=== PATIENT | female | born 1940 | race Caucasian/White ===

== ENCOUNTER 2017-02-16 11:47 | Day surgery (SDC) | payer MEDICARE ==
[2017-02-13 13:37] VITALS: BMI 25.2
[~2017-02-16 11:47] MED LIST: SODIUM CHLORIDE 0.9% 1,000 ML IV SCH
[2017-02-16 12:06] VITALS: BP 179/76; PULSE 46; RESP 18; TEMP 97.7
[2017-02-16] MEDS ORDERED: diphenhydrAMINE 50 MG/ML 1 ML VIAL ONE (12:24)
[2017-02-16] MEDS ORDERED: diphenhydrAMINE 50 MG/ML 1 ML VIAL IVP ONE (12:28)
[2017-02-16] MEDS ORDERED: IODIXANOL 320 MG/ML 100 ML IV ONE (12:46)
--- NOTE | 2017-02-16 13:02 | P.PCN ---
Preoperative Diagnosis: Right upper extremity venogram Indication Patient awaiting permanent pacemaker implantation, left side dialysis AV fistula , prior hemodialysis catheters on the right side subclavian/SCC Procedure 15 mL of IV dye used Right subclavian and axillary veins are patent No stenosis Plan Dual-chamber pacemaker implantation right-sided Hibiclens bath for 7 days prior to the procedure, patient given a prescription daptomycin prior to the procedure and this will be given before the patient enters the EP lab. Over 30 minutes. The dose 1, discussed with pharmacy Oskar following that Postoperative Diagnosis: Procedure(s) Performed: Implants: Indications for Procedure: Operative Findings: Description of Procedure:
== END 2017-02-16 13:12 | disposition home or self-care (01) ==
LOC: CATHEP 11:47
PROVIDERS: ATTEND Internal Medicine Clinical Cardiac Electrophysiology
DX: Z01.818 Encounter for other preprocedural examination (principal); I44.1 Atrioventricular block, second degree; R00.1 Bradycardia, unspecified; I13.11 Hypertensive heart and chronic kidney disease without heart failure, with stage 5 chronic kidney disease, or end stage renal disease; E11.22 Type 2 diabetes mellitus with diabetic chronic kidney disease; N18.5 Chronic kidney disease, stage 5; Z99.2 Dependence on renal dialysis; Z79.4 Long term (current) use of insulin; Z87.891 Personal history of nicotine dependence; E78.5 Hyperlipidemia, unspecified; E03.9 Hypothyroidism, unspecified; Z79.82 Long term (current) use of aspirin; Z79.52 Long term (current) use of systemic steroids; Z79.899 Other long term (current) drug therapy; Z88.1 Allergy status to other antibiotic agents; Z88.5 Allergy status to narcotic agent; Z88.8 Allergy status to other drugs, medicaments and biological substances
CPT/HCPCS: 36005; 75820; J1200; Q9967

== ENCOUNTER 2017-02-17 15:20 | Inpatient (IN) | payer MEDICARE ==
[2017-02-17] MEDS ORDERED: HEPARIN SODIUM,PORCINE 5,000 UNIT/ML 1 ML VIAL IV PRN (18:44)
[2017-02-17] MEDS ORDERED: FEBUXOSTAT 40 MG PO PRN (19:30)
[2017-02-17 20:58] LABS: Glucose,Whole Blood 151 mg/dL (75-99)
[2017-02-17] MEDS: HEPARIN SODIUM,PORCINE/D5W PMX 25,000 UNIT in DEXTROSE/WATER 1 500ML.BAG IV SCH (21:07)
[2017-02-17] MEDS: INSULIN LISPRO (humaLOG) 300 UNIT/3 ML VIAL SQ SCH (21:13)
[2017-02-17] MEDS: ATORVASTATIN 10 MG TAB PO SCH (23:05)
[2017-02-17] MEDS: CALCIUM CARB-MAG CARB-FOLIC 1 EACH TAB PO SCH (23:05)
[2017-02-17] MEDS: CHOLECALCIFEROL 1,000 UNIT TAB PO SCH (23:05)
[2017-02-17] MEDS: ASPIRIN 81 MG CHEW PO SCH (23:05)
[2017-02-17] MEDS: hydrALAZINE HCL 50 MG TAB PO SCH (23:06)
[2017-02-18 05:52] LABS: Glucose,Whole Blood 83 mg/dL (75-99)
[2017-02-18 06:12] LABS: Basophils # (A) 0.1 k/uL (0-0.2); Basophils % (A) 0 %; CH 31.8; Eosinophils # (A) 0.4 k/uL (0-0.7); Eosinophils % (A) 2 %; HCT 37.3 % (34.0-46.0); HDW 2.49; HGB 12.1 gm/dL (11.4-16.0); Immature Gran Flag Slight; Luc # (Auto) 0.18; Luc % (Auto) 1; Lymphocytes # (A) 1.4 k/uL (1.0-4.8); Lymphocytes % (A) 5 %; MCH 31.6 pg (25.0-35.0); MCHC 32.6 g/dL (31.0-37.0); MCV 97.1 fL (80.0-100.0); Mean Platelet Volume 8.6; Monocytes # (A) 0.5 k/uL (0-1.0); Monocytes % (A) 2 %; Neutrophils # (A) 25.1 k/uL (1.3-7.7); Neutrophils % (A) 91 %; RBC 3.84 m/uL (3.80-5.40); RDW 15.4 % (11.5-15.5); WBC (Perox) 27.98
[2017-02-18 06:17] LABS: Calcium 8.9 mg/dL (8.4-10.2)
[2017-02-18 06:22] LABS: INR 1.1 (<1.1); Partial Thromboplastin Time 26.3 sec (22.0-30.0); Prothrombin Time 10.7 sec (9.0-12.0)
[2017-02-18 06:38] LABS: WBC 27.6 k/uL (3.8-10.6)
[2017-02-18] MEDS: LEVOTHYROXINE 75 MCG TAB PO SCH (07:02)
[2017-02-18] MEDS: INSULIN LISPRO (humaLOG) 300 UNIT/3 ML VIAL SQ SCH ×4 (07:03→21:55)
[2017-02-18] MEDS: INSULN ASP PRT/INSULIN ASPART 100 UNIT/ML 10 ML VIAL SQ SCH ×2 (08:37→17:08)
[2017-02-18] MEDS ORDERED: ACETAMINOPHEN TAB 325 MG TAB PO PRN (08:49)
--- NOTE | 2017-02-18 08:52 | HP ---
DATE OF ADMISSION: Emily Hooker was transferred from [facility] for management of atrial fibrillation and bradycardia. Emily underwent venography of the right upper extremity because of future planning for a possible pacemaker. She is a dialysis patient and has an AV fistula on the left arm. She has had hemodialysis catheters placed in the left IJ and subclavian and therefore in order to ensure that there was no stenosis in this left axillary/left subclavian SVC area, venogram was performed 15 mL of dye was used. She is already on prednisone and a higher dose of prednisone was given preoperatively. Benadryl was given preoperatively, because she apparently has dye allergy. After the procedure, she was monitored for several hours. She did have some redness in the skin, but there was no anaphylaxis, no angioedema and she was discharged home. She came back the next and came to [facility] and she certainly did not have any angioedema or anaphylactic shock. She is very stable. She just had a rash. She also was found to be in atrial fibrillation with some bradycardia. This lady has had a history of bradycardiac for quite some time, but she has always been asymptomatic. More recently she has been experiencing dizzy spells. A Reveal monitor had been implanted in 2013 to monitor her for severe bradycardia. The intent was to avoid permanent pacemaker implantation for asymptomatic bradycardia because she is a renal transplant patient. She is on immunosuppressive therapy and therefore her risk of infection is significant after device implantation. Yesterday when I examined her, she was lying comfortably in bed. She had no chest discomfort. She just had itching in the skin and on examination the skin was somewhat reddish all over and was flaking and peeling. There is no evidence for angioedema and her blood pressure is normal. Past history of recurrent palpitations. AV node disease, documented Mobitz I block junctional escape rhythm, diabetes, renal failure, renal transplant on immunosuppressive therapy, past history of alcohol use. ALLERGIES: She has a ( ) of allergies which are listed in the chart. Medication list was reviewed and is documented in the chart. She is on steroids. On examination, her blood pressure was 131/53 mmHg, heart rate is in the 70s and 80s and A. fib. She is afebrile, 97.9 degrees Fahrenheit. Head and neck examination is normal. Heart sounds are irregular. No murmurs, no gallops. Abdomen is soft, nontender. Extremities are warm, no edema. Breath sounds are clear. Labs are reviewed. White count is 27,000. She was given IV steroids last week for several days in preparation for the upper extremity venogram. Sodium is 135, potassium 5.0 creatinine is 5.28, which is chronic. She is on dialysis. She is on IV heparin IMPRESSION: 1. 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 2. Recent diagnosis of atrial fibrillation on heparin now and not a candidate for ( ) she will be started on Coumadin 2.5 mg p.o. daily today and this can be checked in about 5 days. No Lovenox. 3. Junctional rhythm, advance AV node disease and recurrent dizzy spells, but no true loss of consciousness or falls or injuries. 4. Stage V chronic kidney disease on dialysis, status post renal transplant on immunosuppressive therapy. 5. History of diabetes. 6. History of hypertension. 7. History of DYE ALLERGY. 8. Chronic steroid use ( ) IV steroid and elevated white count, but completely afebrile. SUGGEST: In view of the peeling skin and the rash on the chest wall as well as the elevated white count, it will be whitten to hold off on permanent pacing. I have waited since 2013 without any adverse events. We should allow the skin to heal up completely and bring her back for a permanent pacemaker implantation, by then she has already been scheduled for this as an outpatient. By then skin would have healed up and her white count should have improved. I will start her on Coumadin today. If her skin has started to improve, I do not think she needs to wait here, she can go home on Coumadin and we have her checked again in about 5 days in the office. Dialysis may continue.
[2017-02-18] MEDS ORDERED: predniSONE 5 MG TAB PO SCH (09:00)
[2017-02-18] MEDS: diphenhydrAMINE 25 MG CAP PO SCH ×4 (09:31→21:54)
[2017-02-18 10:20] LABS: Glucose,Whole Blood 111 mg/dL (75-99)
[2017-02-18] MEDS ORDERED: ONDANSETRON 4 MG/2 ML VIAL IVP PRN (10:22)
[2017-02-18] MEDS: hydrALAZINE HCL 50 MG TAB PO SCH (10:49)
[2017-02-18] MEDS ORDERED: VANCOMYCIN 1,500 MG in SODIUM CHLORIDE 0.9% 250 ML IVPB STA (10:56)
--- NOTE | 2017-02-18 11:03 | XR ---
EXAMINATION TYPE: XR chest 1V portable DATE OF EXAM: 02/18/2017 10:47 AM COMPARISON: NONE HISTORY: Fever and cough, bradycardia TECHNIQUE: Single frontal view of the chest is obtained. FINDINGS: The patient is rotated and there are overlying cardiac leads. No pneumothorax or pleural e ffusion is evident. Heart is thought to be enlarged. Rhythm recorder noted over the heart. Patchy den sity present at the lung bases. Surgical clip in the right upper quadrant. There is apical pleural th ickening. Pulmonary vascularity and fanny within normal limits. IMPRESSION: Rotated exam. There may be basilar atelectasis, correlate to exclude pneumonia, PA and l ateral chest x-ray may be of benefit. Suspected cardiomegaly.
[2017-02-18] MEDS: SODIUM CHLORIDE 0.9% 1,000 ML IV SCH ×2 (11:06→12:00)
[2017-02-18 11:22] LABS: Glucose,Whole Blood 107 mg/dL (75-99)
--- NOTE | 2017-02-18 11:24 | P.NPCON ---
History of Present Illness - Reason for Consult end stage renal disease - History of Present Illness Reason for consultation: End-stage renal disease History of present illness: Patient is a 77-year-old female seen in renal consultation for end-stage renal disease. She is maintained on hemodialysis on a Thursday schedule via left upper extremity AV fistula. Patient presented to [facility] due to bradycardia. Her heart rate was noted to be in the 30s. She was subsequently transferred over to [facility] for pacemaker placement. However heart rate here has been stable. She is also noted to have a rash on her chest which is presumably due to reaction to the dye from the venogram that she had 2 days ago. Currently she is noted to be hypotensive with systolic blood pressure in the 70s. Her lactic acid level is also elevated at 3.2. She will be receiving IV fluid bolus. She underwent hemodialysis yesterday. She's also noted to have a fever and cultures have been sent. Patient appears quite lethargic and is currently resting in bed. Vital signs are stable. General: The patient appeared well nourished and normally developed. HEENT: Head exam is unremarkable. Neck is without jugular venous distension. LUNGS: Lungs are clear to auscultation and percussion. Breath sounds decreased. HEART: Rate and Rhythm are regular. First and second heart sounds normal. No murmurs, rubs or gallops. Erythema noted on her chest. ABDOMEN: Abdominal exam reveals normal bowel sounds. Non-tender and non- distended. No evidence of peritonitis. EXTREMITITES: No clubbing, cyanosis, or edema. Amputation noted. Past Medical History Past Medical History: Cancer, Diabetes Mellitus, Dialysis, Hyperlipidemia, Liver Disease, Osteoarthritis (OA), Renal Disease, Skin Disorder, Thyroid Disorder, Vascular Disorder Additional Past Medical History / Comment(s): hx migraines, SEE DR PEREIRA'S H& P, GOUT, skin cancer, kidney failure, hemodialysis- on TUTHSA. hx hepatitis. 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 blood transfusion-no reaction that pt was aware of. Type of Cardiac Device: Loop Past Psychological History: No Psychological Hx Reported Smoking Status: Former smoker Past Alcohol Use History: None Reported Additional Past Alcohol Use History / Comment(s): quit smoking 1986, smoked for 30 yrs, smoked 1 1/2 PPD Past Drug Use History: None Reported - Past Family History Mother Family Medical History: Cancer Additional Family Medical History / Comment(s): BREAST Father Family Medical History: CVA/TIA, Diabetes Mellitus Medications and Allergies Home Medications Medication Instructions Recorded Confirmed Type Aspirin 81 mg PO HS 04/20/14 02/17/17 History Cyclosporine, Modified [Gengraf] 25 mg PO HS 04/20/14 02/17/17 History Cyclosporine, Modified [Gengraf] 50 mg PO QAM 04/20/14 02/17/17 History Febuxostat [Uloric] 40 mg PO DAILY PRN 04/20/14 02/17/17 History Insuln Asp Prt/Insulin Aspart See Protocol SQ HS 04/20/14 02/17/17 History [NovoLOG MIX 70-30 VIAL] Levothyroxine Sodium [Synthroid] 150 mcg PO DAILY 04/20/14 02/17/17 History Simvastatin [Zocor] 10 mg PO HS 04/20/14 02/17/17 History hydrALAZINE HCL 50 mg PO BID 04/20/14 02/17/17 History predniSONE 5 mg PO DAILY 04/20/14 02/17/17 History Cholecalciferol [Vitamin D3] 2,000 unit PO HS 02/13/17 02/17/17 History Magnebinder 300 mg PO HS 02/13/17 02/17/17 History Allergies Allergy/AdvReac Type Severity Reaction Status Date / Time Iodine and Iodide Containing Allergy Severe Rash/Hives Verified 02/17/17 19:03 Produc acetaminophen Allergy Rash/Hives Verified 02/17/17 19:03 allopurinol Allergy Rash/Hives Verified 02/17/17 19:03 cephalexin monohydrate Allergy Rash/Hives Verified 02/17/17 19:03 [From Keflex] clindamycin HCl Allergy Rash/Hives Verified 02/17/17 19:03 [From Cleocin] clindamycin palmitate HCl Allergy Rash/Hives Verified 02/17/17 19:03 [From Cleocin] clindamycin phosphate Allergy Rash/Hives Verified 02/17/17 19:03 [From Cleocin] clonidine HCl [From Catapres] Allergy Unknown Verified 02/17/17 19:03 codeine Allergy Unknown Verified 02/17/17 19:03 hydrocodone bitartrate Allergy Rash/Hives Verified 02/17/17 19:03 [From Lortab] metoclopramide HCl Allergy Rash/Hives Verified 02/17/17 19:03 [From Reglan] Penicillins Allergy Unknown Verified 02/17/17 19:03 propoxyphene napsylate Allergy Swelling Verified 02/17/17 19:03 [From Darvocet-N 100] Physical Exam Vitals: Vital Signs Temp Pulse Resp BP Pulse Ox 02/18/17 11:07 67 20 78/43 96 02/18/17 10:56 67 75/40 95 02/18/17 10:54 66 77/45 7 L 02/18/17 10:41 70 90/48 02/18/17 10:21 100.5 F H 90 123/66 94 L 02/18/17 08:35 101.6 F H 83 20 113/46 98 02/18/17 08:00 20 02/18/17 04:00 97.9 F 82 19 131/53 96 02/18/17 00:00 98.1 F 72 16 154/70 98 02/17/17 20:00 98.0 F 63 17 131/78 96 02/17/17 18:40 98.1 F 61 16 136/57 98 Intake and Output 02/17/17 02/18/17 02/18/17 22:59 06:59 14:59 Intake Total 30.2 360 270.094 Output Total 2900 Balance -2869.8 360 270.094 Intake: Intake, IV Titration 30.2 150.094 Amount Heparin Sodium,Porcine/ 30.2 150.094 D5w Pmx 25,000 unit In Dextrose/Water 1 500ml. bag @ 12 UNITS/KG/HR 18. 12 mls/hr IV .Q24H [facility] Rx #:[id number] Oral 360 120 Output: Other 2900 Other: # Voids 1 Weight 75.5 kg 76.5 kg Results - Lab Results Most recent lab results Calcium 8.9 mg/dL (8.4-10.2) 02/18/17 05:36 02/18/17 05:36 02/18/17 05:36 Assessment and Plan Plan: Assessment: #1. End-stage renal disease maintained on hemodialysis on a Thursday schedule via left upper extremity AV fistula. #2. Sepsis. Questionable pneumonia. She does have elevated white count and is also noted to be hypotensive. She is febrile as well. #3. History of liver transplant maintained on cyclosporine and prednisone. #4. Insulin-dependent diabetes mellitus. #5. 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 Currently not bradycardic. #6. Chronic kidney disease mineral bone disease. Plan: I will give her 2 L of IV fluid bolus. If remains persistently hypotensive, will need to be transferred to the intensive care unit for vasopressors. Follow-up cultures. I will give her 1 dose of Zosyn and 1 dose of vancomycin now. Infectious disease has been consulted. Hemodialysis tomorrow. Check phosphorus level. Maintain mgbind with meals. Repeat lactic acid level in the evening. Thank you for the consultation. I will continue to follow the patient with you during her hospital stay.
[2017-02-18 11:48] LABS: Hemoglobin A1C 6.6 % (4.2-6.1)
[2017-02-18] MEDS ORDERED: IV VANCOMYCIN PER PHARMACY 1 EACH MISC MISCELLANE ONE (14:00)
--- NOTE | 2017-02-18 14:31 | P.CNPUL ---
History of Present Illness Consult date: 02/18/17 Requesting physician: Cecil Blood Reason for consult: other (Hypotension and possible sepsis) Chief complaint: Low heart rate and hypotension History of present illness: This is a 77-year-old female with history of end-stage renal disease, patient is on hemodialysis on Tuesdays and Saturdays, this is done via left upper extremity AV fistula. Patient presented to [facility] with bradycardia and heart rate in the low 30s. Patient was seen by cardiology , and arrangements were made for her to be transferred to [facility] for pacemaker placement. However her rate seems to have stabilized since she was brought in to [facility], patient was noted to be hypotensive with systolic pressure in the 70s upon presentation. So far the patient received 2 L of fluid boluses, and she was also noted to have fever, with leukocytosis, patient received empiric antibiotics by nephrology, vancomycin and Zosyn were given. Patient was also given steroids since she is a liver transplant patient and mentate normally on cyclosporine and prednisone. At any rate, at the time of my evaluation, her blood pressure was noted to be in the mid 90s systolic, with a mean arterial pressure of 66. So far the patient has not received any norepinephrine, however I made clear instructions for the patient to be placed on norepinephrine if her blood pressure continues to show mean arterial pressure is below 65. And the patient would have to be transferred to the intensive care unit. During my evaluation, patient denied any headaches no blurred vision no dizziness. No shortness of breath no cough no wheezing no chest pain. No nausea no vomiting no abdominal pain no melena no hematemesis no dysuria and no frequency no urgency. Patient actually seemed quite stable clinically, but the blood pressure was again noted to be marginal mean of 66. Review of Systems 14 point review of systems were obtained, please refer to pertinent positives and negatives as per HPI. Past Medical History Past Medical History: Cancer, Diabetes Mellitus, Dialysis, Hyperlipidemia, Liver Disease, Osteoarthritis (OA), Renal Disease, Skin Disorder, Thyroid Disorder, Vascular Disorder Additional Past Medical History / Comment(s): hx migraines, SEE DR BLOOD'S H& P, GOUT, skin cancer, kidney failure, hemodialysis- on TUTHSA. hx hepatitis. 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 blood transfusion-no reaction that pt was aware of. Type of Cardiac Device: Loop Past Psychological History: No Psychological Hx Reported Smoking Status: Former smoker Past Alcohol Use History: None Reported Additional Past Alcohol Use History / Comment(s): quit smoking 1986, smoked for 30 yrs, smoked 1 1/2 PPD Past Drug Use History: None Reported - Past Family History Mother Family Medical History: Cancer Additional Family Medical History / Comment(s): BREAST Father Family Medical History: CVA/TIA, Diabetes Mellitus Medications and Allergies Home Medications Medication Instructions Recorded Confirmed Type Aspirin 81 mg PO HS 04/20/14 02/17/17 History Cyclosporine, Modified [Gengraf] 25 mg PO HS 04/20/14 02/17/17 History Cyclosporine, Modified [Gengraf] 50 mg PO QAM 04/20/14 02/17/17 History Febuxostat [Uloric] 40 mg PO DAILY PRN 04/20/14 02/17/17 History Insuln Asp Prt/Insulin Aspart See Protocol SQ HS 04/20/14 02/17/17 History [NovoLOG MIX 70-30 VIAL] Levothyroxine Sodium [Synthroid] 150 mcg PO DAILY 04/20/14 02/17/17 History Simvastatin [Zocor] 10 mg PO HS 04/20/14 02/17/17 History hydrALAZINE HCL 50 mg PO BID 04/20/14 02/17/17 History predniSONE 5 mg PO DAILY 04/20/14 02/17/17 History Cholecalciferol [Vitamin D3] 2,000 unit PO HS 02/13/17 02/17/17 History Magnebinder 300 mg PO HS 02/13/17 02/17/17 History Allergies Allergy/AdvReac Type Severity Reaction Status Date / Time Iodine and Iodide Containing Allergy Severe Rash/Hives Verified 02/17/17 19:03 Produc acetaminophen Allergy Rash/Hives Verified 02/17/17 19:03 allopurinol Allergy Rash/Hives Verified 02/17/17 19:03 cephalexin monohydrate Allergy Rash/Hives Verified 02/17/17 19:03 [From Keflex] clindamycin HCl Allergy Rash/Hives Verified 02/17/17 19:03 [From Cleocin] clindamycin palmitate HCl Allergy Rash/Hives Verified 02/17/17 19:03 [From Cleocin] clindamycin phosphate Allergy Rash/Hives Verified 02/17/17 19:03 [From Cleocin] clonidine HCl [From Catapres] Allergy Unknown Verified 02/17/17 19:03 codeine Allergy Unknown Verified 02/17/17 19:03 hydrocodone bitartrate Allergy Rash/Hives Verified 02/17/17 19:03 [From Lortab] metoclopramide HCl Allergy Rash/Hives Verified 02/17/17 19:03 [From Reglan] Penicillins Allergy Unknown Verified 02/17/17 19:03 propoxyphene napsylate Allergy Swelling Verified 02/17/17 19:03 [From Darvocet-N 100] Physical Exam Vitals: Vital Signs Temp Pulse Resp BP Pulse Ox 02/18/17 14:13 73 93/79 02/18/17 13:34 83 18 91/44 95 02/18/17 13:25 98 F 02/18/17 13:23 76 89/52 98 02/18/17 12:45 81 20 115/61 100 02/18/17 12:39 98.7 F 02/18/17 12:26 72 20 90/52 100 02/18/17 12:03 75 20 91/52 100 02/18/17 11:50 79 20 74/45 100 02/18/17 11:31 77 76/42 02/18/17 11:16 100 F H 62 20 69/39 96 02/18/17 11:07 67 20 78/43 96 02/18/17 10:56 67 75/40 95 02/18/17 10:54 66 77/45 7 L 02/18/17 10:41 70 90/48 02/18/17 10:21 100.5 F H 90 123/66 94 L 02/18/17 08:35 101.6 F H 83 20 113/46 98 02/18/17 08:00 20 02/18/17 04:00 97.9 F 82 19 131/53 96 02/18/17 00:00 98.1 F 72 16 154/70 98 02/17/17 20:00 98.0 F 63 17 131/78 96 02/17/17 18:40 98.1 F 61 16 136/57 98 Intake and Output 02/17/17 02/18/17 02/18/17 22:59 06:59 14:59 Intake Total 30.2 360 2780.094 Output Total 2900 Balance -2869.8 360 2780.094 Intake: IV 2410 Heparin Sodium,Porcine/ 160 D5w Pmx 25,000 unit In Dextrose/Water 1 500ml. bag @ 12 UNITS/KG/HR 18. 12 mls/hr IV .Q24H [facility] Rx #:[id number] Sodium Chloride 0.9% 1, 2000 000 ml @ 999 mls/hr IV . Q1H1M [facility] Rx#:[id number] Vancomycin 1,500 mg In 250 Sodium Chloride 0.9% 250 ml @ 125 mls/hr [facility] Rx#:[id number] Intake, IV Titration 30.2 150.094 Amount Heparin Sodium,Porcine/ 30.2 150.094 D5w Pmx 25,000 unit In Dextrose/Water 1 500ml. bag @ 12 UNITS/KG/HR 18. 12 mls/hr IV .Q24H [facility] Rx #:[id number] Oral 360 220 Output: Other 2900 Other: # Voids 1 1 Weight 75.5 kg 76.5 kg Physical Exam: Revealed a 77-year-old female in no distress HEENT:[Neck is supple.] [No neck masses.] [No thyromegaly.] [No JVD.] Chest: [Clear throughout, no crackles, no rhonchi, no wheezes.] Cardiac Exam: [Normal S1 and S2, no S3 gallop, no murmur.] Abdomen: [Soft, nontender, no megaly, no rebound, no guarding, normal bowel sounds.] Extremities: AV fistula is noted in the left forearm, right below-knee amputation was noted. Otherwise extremities are unremarkable. No edema, no cyanosis..] Neurological Exam: [No focal neurologic deficit.] Results - Laboratory Findings CBC and BMP: 02/18/17 05:36 02/18/17 05:36 PT/INR, D-dimer PT 10.7 sec (9.0-12.0) 02/18/17 05:36 INR 1.1 (<1.1) 02/18/17 05:36 Abnormal lab findings: Abnormal Labs 02/17/17 02/17/17 02/18/17 20:56 21:40 05:36 WBC Neutrophils # APTT 50.0 H Sodium BUN Creatinine POC Glucose (mg/dL) 151 H Hemoglobin A1c 6.6 H Plasma Lactic Acid [place] Phosphorus 02/18/17 02/18/17 02/18/17 05:36 05:36 09:15 WBC 27.6 H* Neutrophils # 25.1 H APTT Sodium 135 L BUN 63 H Creatinine 5.28 H* POC Glucose (mg/dL) Hemoglobin A1c Plasma Lactic Acid [place] 3.2 H* Phosphorus 02/18/17 02/18/17 02/18/17 10:16 11:19 11:22 WBC Neutrophils # APTT Sodium BUN Creatinine POC Glucose (mg/dL) 111 H 107 H Hemoglobin A1c Plasma Lactic Acid [place] Phosphorus 5.1 H - Diagnostic Findings Chest x-ray: image reviewed (Minimal basilar atelectasis, strongly doubt any pneumonia. There is also cardiomegaly.) Assessment and Plan Plan: Impression: 1 strongly suspect acute sepsis, exact source is not clear, could very well be related to her dialysis, she has no active pulmonary symptoms whatsoever, and her chest x-ray is showing atelectasis, strongly doubt pneumonia. Patient did receive vancomycin and Zosyn, I think that's very appropriate, she also received 2 L of fluid boluses. And blood pressure seems to be holding quite well at present. However the patient could be transferred to the ICU if her blood pressure drops again or if she requires to be placed on norepinephrine. 2 history of end-stage renal disease on hemodialysis via left upper extremity AV fistula. 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 6 history of insulin-dependent diabetes 7 history of peripheral vessel occlusive disease and previous right below-knee amputation. Recommendation: Agree with the present treatment plan including antibiotics, fluid boluses, lactic acid monitoring, baseline was 3.2, consider transfer to the ICU if blood pressure remains llabile. We'll continue to follow. Time with Patient: Greater than 30
--- NOTE | 2017-02-18 14:47 | CDI ---
In responding to this query, please exercise your independent professional judgment. The [facility] Coding Staff and Clinical Documentation Specialists appreciate your assistance in clarifying documentation, maintaining compliance with coding guidelines, accurately documenting patients condition and capturing severity of illness. The fact that a question is asked does not imply that any particular answer is desired or expected. Communication forms are a method of clarifying documentation and are not made part of the Legal Health Record. Thank you in advance for your clarification. Last Revision, July 2015 Naomi Jung [address] [place] [address] Documentation Clarification Form Date: 02/18/2017 2:35:00 PM Resubmitted 03/03/2017 From: Madhavi Enriquez CCS, CCDS Admit Date: 02/17/2017 6:03:00 PM Patient Name: Emily Hooker Visit Number: [id number] Discharge Date: 02/20/2017 Dr. Cecil Blood: Atrial fibrillation is documented in the History & Physical as newly diagnosed, started on Coumadin on admission, will be discharged on Coumadin. Transferred to ICU on day #2 due to hypotension: 74/45, 89/52. History/Risk Factors: Patient will be scheduled for a permanent pacemaker when stable. Clinical Indicators: Presented as a transfer from [facility] due to hypotension. Recent AV fistula placed left arm for hemodialysis. HR 61, 63, 72 Treatment: Heparin drip, Insulin sc, Hemodialysis scheduled for tomorrow Consults: Nephrology, Pulmonary, Infectious disease. In your professional opinion, can you please clarify the type of atrial fibrillation, if known? Chronic/Permanent Paroxysmal Persistent Other, please specify Unable to determine Please document in your progress notes and discharge summary in order to capture severity of illness and risk of mortality. Include clinical findings that support your diagnosis. FYI: Press F11 to launch patient chart Place X here if this finding has no clinical significance, is not applicable or if you are not able to provide any additional documentation. Thank You. DIO
--- NOTE | 2017-02-18 15:30 | P.HPIM ---
History of Present Illness H&P Date: 02/18/17 Chief Complaint: Bradycardia, sick sinus syndrome recent IV contrast anaphylaxis This is a pleasant 77-year-old old lady patient of Dr. Pruitt, known history of CAD diabetes mellitus thyroid disorder hypertension liver transplant awaiting for AV graft fistula and pacemaker placement, transferred to hospital secondary to bradycardia. She was recently transferred from [facility] from her recent IV contrast drug reaction presenting with generalized urticaria and rashes. Patient did not have any shortness of breath at the time and has some nausea with itching. Prior to this Patient had a venogram done on [facility] on February 15 for which she has no IV contrast ALLERGY and was premedicated with Benadryl and IV steroids. Patient was subsequently sent home, the next day she showed in the emergency room are [facility] with significant hives all over her body without any angioedema. Prior to her being discharged to notice her heart rate being in the low 30s and was transferred to [facility] for pacemaker placement. When she was evaluated today on she had significant worsening of the rash scattered all over her body and is red and inflamed starting from neck down up to her groin bilaterally anteriorly and posteriorly, with small vesicular eruption or bullae on the left torso. This was significantly different from her original presentation 2 days ago. At [facility] she was given IV Solu-Medrol, Claritin and Pepcid, and was transfered here with Medrol Dosepak 1 the medical floor she has been febrile, and was noted to be hypotensive and required fluid resuscitation, patient currently is on IV Solu-Medrol with consults to Dr. pereira cardiology, pacemaker placement is canceled secondary to the rash and fever, also Dr. Brown from pulmonary medicine, and nephrology consultation she required 2 L of fluid boluses IV antibiotics vancomycin and Zosyn were given, infectious disease was counseled did Dr. Lau along with Dr. Sal from nephrology patient is stabilized and awaiting possible ICU transfer should she be more hypotensive. On the time of dictation blood pressure currently is on at, systolic 93/79 Review of Systems Constitutional: Reports as per HPI, Reports anorexia, Denies chills, Denies chronic headaches, Denies chronic pain, Denies daytime sleepiness, Denies fatigue, Denies fever, Denies lethargy, Denies malaise, Denies night sweats, Denies poor appetite, Denies sweats, Denies weakness, Denies weight gain, Denies weight loss Ears, nose, mouth and throat: Reports as per HPI, Denies ant. neck pain, Denies bleeding gums, Denies dental pain, Denies dysphagia, Denies epistaxis, Denies headache, Denies hoarseness, Denies mouth pain, Denies nasal congestion, Denies nasal discharge, Denies neck fullness/pressure, Denies neck lump, Denies nose pain, Denies odynophagia, Denies post-nasal drip, Denies sinus pain, Denies sinus pressure, Denies swelling in mouth, Denies swelling in throat, Denies sore throat, Denies vertigo, Denies voice changes Cardiovascular: Reports as per HPI, Denies chest pain, Denies claudication, Denies decreased exercise tolerance, Denies dyspnea on exertion, Denies edema, Denies high blood pressure, Denies irregular heart beat, Denies leg edema, Denies lightheadedness, Denies orthopnea, Denies palpitations, Denies paroxysmal nocturnal dyspnea, Denies phlebitis, Denies rapid heart beat, Denies shortness of breath, Denies syncope Respiratory: Reports as per HPI, Denies congestion, Denies cough, Denies cough with sputum, Denies dyspnea, Denies excessive sputum, Denies hemoptysis, Denies home oxygen, Denies pain, Denies pain on inspiration, Denies pleurisy, Denies respiratory infections, Denies sleep apnea, Denies snoring, Denies wheezing Gastrointestinal: Reports as per HPI, Denies abdominal pain, Denies belching, Denies bloating, Denies BRBPR, Denies change in bowel habits, Denies coffee ground emesis, Denies constipation, Denies diarrhea, Denies dyspepsia, Denies early satiety, Denies excessive gas, Denies heartburn, Denies hematemesis, Denies hematochezia, Denies indigestion, Denies jaundice, Denies lactose intolerance, Denies loss of appetite, Denies melena, Denies nausea, Denies vomiting Genitourinary: Reports as per HPI, Denies abnormal vaginal bleeding, Denies decreased libido, Denies difficulty conceiving, Denies difficulty voiding, Denies dysmenorrhea, Denies dyspareunia, Denies dysuria, Denies flank pain, Denies genital sores, Denies hematuria, Denies hot flashes, Denies incomplete emptying, Denies kidney stones, Denies menorrhagia, Denies mixed incontinence, Denies nocturia, Denies pelvic pain, Denies post void dribbling, Denies , Denies prolapse symptoms, Denies stress incontinence, Denies urge incontinence , Denies urgency, Denies urinary frequency, Denies vaginal discharge, Denies vaginal dryness, Denies vaginal itching, Denies vaginal odor Menstruation: Reports as per HPI Musculoskeletal: Reports as per HPI Integumentary: Reports as per HPI, Reports color changes, Reports pruritus, Reports rash Neurological: Reports as per HPI, Denies aphasia, Denies ataxia, Denies balance difficulties, Denies burning pain, Denies change in mentation, Denies change in smell/taste, Denies change in speech, Denies confusion, Denies convulsions, Denies double vision, Denies gait dysfunction, Denies head injury, Denies headaches, Denies hearing difficulties, Denies lack of coordination, Denies loss of vision, Denies memory loss, Denies migraines, Denies motor disturbance, Denies numbness, Denies paralysis, Denies paresthesias, Denies seizures, Denies sensory deficit, Denies spasticity, Denies syncope, Denies tic, Denies tingling , Denies transient paralysis, Denies tremors, Denies vertigo, Denies weakness, Denies visual changes Psychiatric: Reports as per HPI Endocrine: Reports as per HPI, Denies cold intolerance, Denies deepening of the voice, Denies excessive sweating, Denies excessive thirst, Denies fatigue, Denies flushing, Denies heat intolerance, Denies high blood sugars, Denies increase in ring/shoe/hat size, Denies low blood sugars, Denies nocturia, Denies palpitations, Denies polydipsia, Denies polyphagia, Denies polyuria, Denies proptosis, Denies recent glucocorticoid use, Denies thyroid mass, Denies weight change Hematologic/Lymphatic: Reports as per HPI, Denies easy bleeding, Denies easy bruising, Denies lymphadenopathy, Denies lymphedema, Denies thrombophilia Allergic/Immunologic: Reports as per HPI, Denies allergic rhinitis, Denies anaphylaxis, Denies angioedema, Denies gluten intolerance, Denies persistent infections, Denies seasonal allergies, Denies urticaria, Denies wheezing Past Medical History Past Medical History: Cancer, Diabetes Mellitus, Dialysis, Hyperlipidemia, Liver Disease, Osteoarthritis (OA), Renal Disease, Skin Disorder, Thyroid Disorder, Vascular Disorder Additional Past Medical History / Comment(s): hx migraines, SEE DR PEREIRA'S H& P, GOUT, skin cancer, kidney failure, hemodialysis- on TUTHSA. hx hepatitis. 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 blood transfusion-no reaction that pt was aware of. Type of Cardiac Device: Loop Past Psychological History: No Psychological Hx Reported Smoking Status: Former smoker Past Alcohol Use History: None Reported Additional Past Alcohol Use History / Comment(s): quit smoking 1986, smoked for 30 yrs, smoked 1 1/2 PPD Past Drug Use History: None Reported - Past Family History Mother Family Medical History: Cancer (breast) Additional Family Medical History / Comment(s): BREAST Father Family Medical History: CVA/TIA, Diabetes Mellitus Sister(s) Family Medical History: Memory Impairment, Neurologic Disorder Medications and Allergies Home Medications Medication Instructions Recorded Confirmed Type Aspirin 81 mg PO HS 04/20/14 02/17/17 History Cyclosporine, Modified [Gengraf] 25 mg PO HS 04/20/14 02/17/17 History Cyclosporine, Modified [Gengraf] 50 mg PO QAM 04/20/14 02/17/17 History Febuxostat [Uloric] 40 mg PO DAILY PRN 04/20/14 02/17/17 History Insuln Asp Prt/Insulin Aspart See Protocol SQ HS 04/20/14 02/17/17 History [NovoLOG MIX 70-30 VIAL] Levothyroxine Sodium [Synthroid] 150 mcg PO DAILY 04/20/14 02/17/17 History Simvastatin [Zocor] 10 mg PO HS 04/20/14 02/17/17 History hydrALAZINE HCL 50 mg PO BID 04/20/14 02/17/17 History predniSONE 5 mg PO DAILY 04/20/14 02/17/17 History Cholecalciferol [Vitamin D3] 2,000 unit PO HS 02/13/17 02/17/17 History Magnebinder 300 mg PO HS 02/13/17 02/17/17 History Allergies Allergy/AdvReac Type Severity Reaction Status Date / Time Iodine and Iodide Containing Allergy Severe Rash/Hives Verified 02/17/17 19:03 Produc acetaminophen Allergy Rash/Hives Verified 02/17/17 19:03 allopurinol Allergy Rash/Hives Verified 02/17/17 19:03 cephalexin monohydrate Allergy Rash/Hives Verified 02/17/17 19:03 [From Keflex] clindamycin HCl Allergy Rash/Hives Verified 02/17/17 19:03 [From Cleocin] clindamycin palmitate HCl Allergy Rash/Hives Verified 02/17/17 19:03 [From Cleocin] clindamycin phosphate Allergy Rash/Hives Verified 02/17/17 19:03 [From Cleocin] clonidine HCl [From Catapres] Allergy Unknown Verified 02/17/17 19:03 codeine Allergy Unknown Verified 02/17/17 19:03 hydrocodone bitartrate Allergy Rash/Hives Verified 02/17/17 19:03 [From Lortab] metoclopramide HCl Allergy Rash/Hives Verified 02/17/17 19:03 [From Reglan] Penicillins Allergy Unknown Verified 02/17/17 19:03 propoxyphene napsylate Allergy Swelling Verified 02/17/17 19:03 [From Darvocet-N 100] Physical Exam Vitals: Vital Signs Temp Pulse Resp BP Pulse Ox 02/18/17 14:13 73 93/79 02/18/17 13:34 83 18 91/44 95 02/18/17 13:25 98 F 02/18/17 13:23 76 89/52 98 02/18/17 12:45 81 20 115/61 100 02/18/17 12:39 98.7 F 02/18/17 12:26 72 20 90/52 100 02/18/17 12:03 75 20 91/52 100 02/18/17 11:50 79 20 74/45 100 02/18/17 11:31 77 76/42 02/18/17 11:16 100 F H 62 20 69/39 96 02/18/17 11:07 67 20 78/43 96 02/18/17 10:56 67 75/40 95 02/18/17 10:54 66 77/45 7 L 02/18/17 10:41 70 90/48 02/18/17 10:21 100.5 F H 90 123/66 94 L 02/18/17 08:35 101.6 F H 83 20 113/46 98 02/18/17 08:00 20 02/18/17 04:00 97.9 F 82 19 131/53 96 02/18/17 00:00 98.1 F 72 16 154/70 98 02/17/17 20:00 98.0 F 63 17 131/78 96 02/17/17 18:40 98.1 F 61 16 136/57 98 Intake and Output 02/17/17 02/18/17 02/18/17 22:59 06:59 14:59 Intake Total 30.2 360 2780.094 Output Total 2900 Balance -2869.8 360 2780.094 Intake: IV 2410 Heparin Sodium,Porcine/ 160 D5w Pmx 25,000 unit In Dextrose/Water 1 500ml. bag @ 12 UNITS/KG/HR 18. 12 mls/hr IV .Q24H MICHAEL Rx #:[id number] Sodium Chloride 0.9% 1, 2000 000 ml @ 999 mls/hr IV . Q1H1M MICHAEL Rx#:[id number] Vancomycin 1,500 mg In 250 Sodium Chloride 0.9% 250 ml @ 125 mls/hr IVPB ONCE STA Rx#:[id number] Intake, IV Titration 30.2 150.094 Amount Heparin Sodium,Porcine/ 30.2 150.094 D5w Pmx 25,000 unit In Dextrose/Water 1 500ml. bag @ 12 UNITS/KG/HR 18. 12 mls/hr IV .Q24H MICHAEL Rx #:[id number] Oral 360 220 Output: Other 2900 Other: # Voids 1 1 Weight 75.5 kg 76.5 kg - Constitutional General appearance: average body habitus, cooperative, no acute distress - EENT Eyes: anicteric sclerae, EOMI, PERRLA, normal appearance ENT: hearing grossly normal, NA/AT, normal oropharynx - Neck Neck: normal ROM - Respiratory Respiratory: bilateral: CTA, diminished, negative: dullness, rales, rhonchi, wheezing - Cardiovascular Rhythm: regular Heart sounds: normal: S1, S2 Abnormal Heart Sounds: no systolic murmur, no diastolic murmur, no rub, no S3 Gallop, no S4 Gallop, no click, no other - Gastrointestinal General gastrointestinal: decreased bowel sounds, soft - Integumentary Integumentary: normal, normal turgor, rash (Confluent redness with warmth all over the abdomen anterior and posteriorly, chest anterior posteriorly, bilateral groin and thigh. Distally, with blanching phenomenon no open sores, bullae noted on the left torso without any signs off shingle rash) - Neurologic Neurologic: CNII-XII intact Results CBC & Chem 7: 02/18/17 05:36 02/18/17 05:36 Labs: Abnormal Lab Results - Last 24 Hours (Table) 02/17/17 02/17/17 02/18/17 Range/Units 20:56 21:40 05:36 WBC (3.8-10.6) k/uL Neutrophils # (1.3-7.7) k/uL APTT 50.0 H (22.0-30.0) sec Sodium (137-145) mmol/L BUN (7-17) mg/dL Creatinine (0.52-1.04) mg/dL POC Glucose (mg/dL) 151 H (75-99) mg/dL Hemoglobin A1c 6.6 H (4.2-6.1) % Plasma Lactic Acid [place] (0.7-2.0) mmol/L Phosphorus (2.5-4.5) mg/dL 02/18/17 02/18/17 02/18/17 Range/Units 05:36 05:36 09:15 WBC 27.6 H* (3.8-10.6) k/uL Neutrophils # 25.1 H (1.3-7.7) k/uL APTT (22.0-30.0) sec Sodium 135 L (137-145) mmol/L BUN 63 H (7-17) mg/dL Creatinine 5.28 H* (0.52-1.04) mg/dL POC Glucose (mg/dL) (75-99) mg/dL Hemoglobin A1c (4.2-6.1) % Plasma Lactic Acid [place] 3.2 H* (0.7-2.0) mmol/L Phosphorus (2.5-4.5) mg/dL 02/18/17 02/18/17 02/18/17 Range/Units 10:16 11:19 11:22 WBC (3.8-10.6) k/uL Neutrophils # (1.3-7.7) k/uL APTT (22.0-30.0) sec Sodium (137-145) mmol/L BUN (7-17) mg/dL Creatinine (0.52-1.04) mg/dL POC Glucose (mg/dL) 111 H 107 H (75-99) mg/dL Hemoglobin A1c (4.2-6.1) % Plasma Lactic Acid [place] (0.7-2.0) mmol/L Phosphorus 5.1 H (2.5-4.5) mg/dL 02/18/17 Range/Units 13:45 WBC (3.8-10.6) k/uL Neutrophils # (1.3-7.7) k/uL APTT (22.0-30.0) sec Sodium (137-145) mmol/L BUN (7-17) mg/dL Creatinine (0.52-1.04) mg/dL POC Glucose (mg/dL) (75-99) mg/dL Hemoglobin A1c (4.2-6.1) % Plasma Lactic Acid Kol[place] 2.4 H* (0.7-2.0) mmol/L Phosphorus (2.5-4.5) mg/dL Laboratory Results WBC 27.6 k/uL (3.8-10.6) H* 02/18/17 05:36 RBC 3.84 m/uL (3.80-5.40) 02/18/17 05:36 Hgb 12.1 gm/dL (11.4-16.0) 02/18/17 05:36 Hct 37.3 % (34.0-46.0) 02/18/17 05:36 MCV 97.1 fL (80.0-100.0) 02/18/17 05:36 MCH 31.6 pg (25.0-35.0) 02/18/17 05:36 MCHC 32.6 g/dL (31.0-37.0) 02/18/17 05:36 RDW 15.4 % (11.5-15.5) 02/18/17 05:36 Plt Count 251 k/uL (150-450) 02/18/17 05:36 Neutrophils % 91 % 02/18/17 05:36 Lymphocytes % 5 % 02/18/17 05:36 Monocytes % 2 % 02/18/17 05:36 Eosinophils % 2 % 02/18/17 05:36 Basophils % 0 % 02/18/17 05:36 Neutrophils # 25.1 k/uL (1.3-7.7) H 02/18/17 05:36 Lymphocytes # 1.4 k/uL (1.0-4.8) 02/18/17 05:36 Monocytes # 0.5 k/uL (0-1.0) 02/18/17 05:36 Eosinophils # 0.4 k/uL (0-0.7) 02/18/17 05:36 Basophils # 0.1 k/uL (0-0.2) 02/18/17 05:36 PT 10.7 sec (9.0-12.0) 02/18/17 05:36 INR 1.1 (<1.1) 02/18/17 05:36 APTT 26.3 sec (22.0-30.0) 02/18/17 05:36 Sodium 135 mmol/L (137-145) L 02/18/17 05:36 Potassium 5.0 mmol/L (3.5-5.1) 02/18/17 05:36 Chloride 99 mmol/L (98-107) 02/18/17 05:36 Carbon Dioxide 22 mmol/L (22-30) 02/18/17 05:36 Anion Gap 14 mmol/L 02/18/17 05:36 BUN 63 mg/dL (7-17) H 02/18/17 05:36 Creatinine 5.28 mg/dL (0.52-1.04) H* 02/18/17 05:36 Est GFR (MDRD) Af Amer 10 (>60 ml/min/1.73 sqM) 02/18/17 05:36 Est GFR (MDRD) Non-Af 8 (>60 ml/min/1.73 sqM) 02/18/17 05:36 Glucose 85 mg/dL (74-99) 02/18/17 05:36 POC Glucose (mg/dL) 107 mg/dL (75-99) H 02/18/17 11:19 POC Glu Pyrotechnic [employer]sembler Bharat Meredith 02/18/17 11:[address] Glu mg/dL 143 mg/dL 02/18/17 05:36 Hemoglobin A1c 6.6 % (4.2-6.1) H 02/18/17 05:36 Plasma Lactic Acid Kol[place] 2.4 mmol/L (0.7-2.0) H* 02/18/17 13:45 Calcium 8.9 mg/dL (8.4-10.2) 02/18/17 05:36 Phosphorus 5.1 mg/dL (2.5-4.5) H 02/18/17 11:22 Ammonia 10 umol/L (<30) 02/18/17 09:15 Thrombosis Risk Factor Assmnt - DVT/VTE Prophylaxis DVT/VTE Prophylaxis: Pharmacologic Prophylaxis ordered Assessment and Plan Plan: 1. Acute anaphylactic reaction with IV contrast exposure, which generalized tachycardia redness confluent erythematous eruption with vesicular eruption in the torso, receive IV Solu-Medrol and IV Pepcid, Claritin, 2. Acute hemodynamic instability secondary to acute anaphylactic reaction, fluids for hydration, maintain IV steroids, with a fever cultures were obtained and infectious Consult were made. Patient is on standby for ICU, would need Levophed if the blood pressure drops even further 3. Febrile episode possibly related to drug IV contrast dye exposure, patient is cultured from the urine blood and infectious disease consult is seeing her, patient is receiving IV pain unsure whether urine can be obtained secondary to her end-stage renal disease 4. Sick sinus syndrome requiring pacemaker placement this is currently on hold secondary to confluent rash in the torso, monitor for significant bradycardia, 5. CAD currently on aspirin, hydralazine on hold, Lipitor, patient has multiple drug ALLERGIES 6. Known history of liver transplant and chronic immunosuppression patient's chronically on oral prednisone and cyclosporine 7. Hypothyroidism on levothyroxine 150 mg daily 8 Lactic acidosis possibly related to early sepsis, leukocytosis, against end- stage renal disease 9 End-stage renal disease on hemodialysis Saturdays by her left upper extremity AV fistula 10 Diabetes mellitus type 2 on NovoLog Mix 70/30 patient will be on NovoLog sliding scale and Accu-Cheks 11 Hyperlipidemia on Zocor 10, 12 Hypertension currently on hydralazine 50 mg twice a day which is on hold secondary to hemodynamic instability with hypotension
[2017-02-18] MEDS ORDERED: SODIUM CHLORIDE 0.9% 500 ML IV ONE (15:39)
[2017-02-18 16:35] LABS: Glucose,Whole Blood 149 mg/dL (75-99)
[2017-02-18] MEDS: methylPREDNISolone SOD SUCCI 125 MG/2 ML VIAL IV SCH ×2 (16:40→23:40)
[2017-02-18] MEDS: WARFARIN 2.5 MG TAB PO SCH ×2 (17:11→17:24)
[2017-02-18 20:22] LABS: Glucose,Whole Blood 138 mg/dL (75-99)
[2017-02-18] MEDS: HEPARIN SODIUM,PORCINE/D5W PMX 25,000 UNIT in DEXTROSE/WATER 1 500ML.BAG IV SCH (21:56)
[2017-02-18] MEDS: ASPIRIN 81 MG CHEW PO SCH (21:56)
[2017-02-18] MEDS: CHOLECALCIFEROL 1,000 UNIT TAB PO SCH (21:57)
[2017-02-18] MEDS: ATORVASTATIN 10 MG TAB PO SCH (21:57)
[2017-02-18] MEDS: CALCIUM CARB-MAG CARB-FOLIC 1 EACH TAB PO SCH (21:57)
[2017-02-18] MEDS ORDERED: IV VANCOMYCIN PER PHARMACY 1 EACH MISC MISCELLANE PRN (22:23)
[2017-02-19 05:54] LABS: Glucose,Whole Blood 231 mg/dL (75-99)
[2017-02-19 06:17] LABS: CH 31.4; CHCM 31.9; HCT 33.3 % (34.0-46.0); HGB 11.1 gm/dL (11.4-16.0); MCH 32.9 pg (25.0-35.0); MCHC 33.2 g/dL (31.0-37.0); MCV 99.1 fL (80.0-100.0); Macrocytosis Slight; Mean Platelet Volume 8.5; RBC 3.36 m/uL (3.80-5.40); RDW 15.1 % (11.5-15.5)
[2017-02-19 06:20] LABS: Calcium 7.2 mg/dL (8.4-10.2); Total Bilirubin 0.9 mg/dL (0.2-1.3)
[2017-02-19] MEDS: INSULIN LISPRO (humaLOG) 300 UNIT/3 ML VIAL SQ SCH ×4 (06:28→20:18)
[2017-02-19] MEDS: LEVOTHYROXINE 75 MCG TAB PO SCH (06:29)
[2017-02-19] MEDS: INSULN ASP PRT/INSULIN ASPART 100 UNIT/ML 10 ML VIAL SQ SCH ×2 (06:29→16:57)
[2017-02-19 06:37] LABS: WBC 25.7 k/uL (3.8-10.6)
[2017-02-19] MEDS: methylPREDNISolone SOD SUCCI 125 MG/2 ML VIAL IV SCH ×2 (07:35→16:57)
[2017-02-19] MEDS: diphenhydrAMINE 25 MG CAP PO SCH ×4 (07:45→20:14)
[2017-02-19 07:53] VITALS: RESP 18
--- NOTE | 2017-02-19 07:59 | CONS ---
DATE OF CONSULTATION: 02/18/2017 Reason for consultation is fever and rash with a question of sepsis. HISTORY OF PRESENT ILLNESS: The patient is a 77-year-old female with a past medical history significant for endstage renal disease on hemodialysis with left arm AV fistula. Patient recently did have venogram with the use of IV contrast for the main mapping. Patient was premedicated with Benadryl and steroids; however, the patient did develop significant rash for which the patient has been evaluated at [facility], has been treated with Solu-Medrol, Pepcid and Benadryl. Patient apparently has heart rate going down to 30s as the patient has been transferred to the [facility] for possible pacemaker placement. Patient is noticed to have worsening of her rash, mostly on the torso both anterior and posterior with itching to it. No significant pain. The patient denies having any difficulty swallowing, tongue swelling or any difficulty in breathing. Patient did spike a fever this morning of 101.6 to 100.5 degrees Fahrenheit. Patient also had an elevated white count of 27.6. The patient did have an elevated lactic acid of 2.4 with a chest x-ray question of infiltrate versus pneumonia. She was given a dose of vancomycin. I was asked to see the patient for further recommendation regarding antibiotic therapy. Patient's vitals signs were low. Blood pressure that seemed to have responded to the IV fluid bolus. Patient seemed to be anxious, though denies any headache. Denies having any urinary symptoms and no chest pain, shortness of breath or cough and no abdominal pain and no diarrhea. The main symptoms remains to be rash and itching. REVIEW OF SYSTEMS: CONSTITUTIONAL: Positive for weakness and rash. No fever. EYES: No complaint. ENT: No complaint. RESPIRATORY: No complaint. CARDIOVASCULAR: No complaint. GENITOURINARY: No complaint. GASTROINTESTINAL: No complaint. MUSCULOSKELETAL: No complaint. INTEGUMENTARY: As per HPI. PSYCHOLOGICAL: No complaint. ENDOCRINE: No complaint. NEUROLOGIC: No complaint. Past medical history significant for hyperlipidemia, end-stage renal disease, diabetes mellitus, gout, and liver failure. PAST SURGICAL HISTORY: Bowel resection, cholecystectomy, hernia repair, liver transplant, ileostomy with reversal, bilateral breast biopsy, bilateral cataract surgery. SOCIAL HISTORY: Remote history of smoking; quit 30 years ago. Denies any drinking or drug use. FAMILY HISTORY: Mother with history of breast cancer, father with history of diabetes and CVA. Allergies to multiple medications including penicillin, Keflex, clindamycin this type of medication with nonspecific . Medications currently include the patient received a dose of vanco. She is on Coumadin, prednisone, aspirin, Tylenol, Lipitor, vitamin D3, cyclosporin, Benadryl, heparin, NovoLog sliding scale, Synthroid, Solu-Medrol, and Zofran. On examination, her blood pressure is 91/44 with a pulse of 83, temperature 98, temperature 101.6 and 95% on room air. General description is an elderly female up in the bed, in no distress. No tachypnea or accessory muscle fir respiration use. HEENT examination no pallor or scleral icterus, oral mucosa is dry. NECK: Trachea central. No thyromegaly. LUNGS: Unlabored breathing. Clear to auscultation. HEART: S1, S2. Regular rate and rhythm. ABDOMEN: Soft, nontender. EXTREMITIES: No edema of the feet. Left arm AV fistula site looks clean, no swelling, no redness. Skin examination with diffuse rash involving the trunk area and no blister formation or any skin rigor. Neurologically patient is awake, alert, oriented x2. Mood and affect normal. LABS: Hemoglobin is 12.1, white count 27.6. BUN of 63, creatinine 5.28, electrolyte has been normal. Plasma lactic acid was 3.2 down to 2.2. Chest x-ray with some infiltrate with a likely source of pneumonia. DIAGNOSTIC IMPRESSION AND PLAN: 1. Patient with sepsis in a patient who did have features of fever, elevated white count and hypertension more likely extensive drug reaction secondary to IV contrast exposure as the patient clinically not behaving as infection with no clinical focus of infection. The patient's AV fistula site looks clean. Abdomen was soft on clinical examination. The only positive point has been the extensive rash and likely secondery to Iv contrast exposure. 2. Patient who did have multiple antibiotic allergies that do limit the antibiotics that could be safely used. PLAN: 1. Blood culture has been obtained, the results will be followed. 2. Recommend to keep the patient on the vancomycin while waiting for the culture to finalize. 3. IV steroids and Benadryl considered for underlying severe allergic reaction. 4. We will follow up on the clinical condition and cultures to further adjust the medication if needed. Thank you for this consultation. Will follow this patient along with you. DIO
--- NOTE | 2017-02-19 09:38 | P.PN ---
Subjective In follow-up for end-stage renal disease. She is maintained on hemodialysis on a Thursday schedule via left upper extremity AV fistula. Patient was transferred from [facility] with bradycardia and a potential pacemaker placement. She was noted to have a rash on her chest which is presumably due to contrast dye reaction from the venogram that she had recently. Yesterday she was hypotensive with an elevated lactic acidosis level. There was concern for sepsis. She did receive fluid resuscitation. Lactic acid level from yesterday evening was down to 1.2. She is currently awake and alert. Denies any chest pain or shortness of breath. No vomiting or diarrhea. Vital signs are stable. General: The patient appeared well nourished and normally developed. HEENT: Head exam is unremarkable. Neck is without jugular venous distension. LUNGS: Lungs are clear to auscultation and percussion. Breath sounds decreased. HEART: Rate and Rhythm are regular. First and second heart sounds normal. No murmurs, rubs or gallops. ABDOMEN: Abdominal exam reveals normal bowel sounds. Non-tender and non- distended. No evidence of peritonitis. EXTREMITITES: No clubbing, cyanosis, or edema. Right [id number] amputation noted. Objective - Vital Signs Vital signs: Vital Signs Temp 97.5 F L 02/19/17 07:46 Pulse 60 02/19/17 07:46 Resp 18 02/19/17 07:46 BP 146/60 02/19/17 07:46 Pulse Ox 98 02/19/17 07:46 Intake & Output 02/18/17 02/19/17 02/19/17 18:59 06:59 18:59 Intake Total 3057.497 642.226 120 Balance 3057.497 642.226 120 Weight 76.5 kg Intake: IV 2410 321.3 0.9@10mls/ hr 90 Heparin Sodium,Porcine/ 160 231.3 D5w Pmx 25,000 unit In Dextrose/Water 1 500ml. bag @ 12 UNITS/KG/HR 18. 12 mls/hr IV .Q24H [facility] Rx #:[id number] Sodium Chloride 0.9% 1, 2000 000 ml @ 999 mls/hr IV . Q1H1M [facility] Rx#:[id number] Vancomycin 1,500 mg In 250 Sodium Chloride 0.9% 250 ml @ 125 mls/hr IVPB ONCE [facility] Rx#:[id number] Intake, IV Titration 367.497 320.926 Amount Heparin Sodium,Porcine/ 367.497 320.926 D5w Pmx 25,000 unit In Dextrose/Water 1 500ml. bag @ 12 UNITS/KG/HR 18. 12 mls/hr IV .Q24H [facility] Rx #:[id number] Oral 280 120 Other: Voiding Method Toilet # Voids 1 - Labs CBC & Chem 7: 02/19/17 05:36 02/19/17 05:36 Labs: Abnormal Lab Results - Last 24 Hours (Table) 02/18/17 02/18/17 02/18/17 Range/Units 05:36 09:15 10:16 WBC (3.8-10.6) k/uL RBC (3.80-5.40) m/uL Hgb (11.4-16.0) gm/dL Hct (34.0-46.0) % APTT (22.0-30.0) sec Sodium (137-145) mmol/L Potassium (3.5-5.1) mmol/L Chloride (98-107) mmol/L Carbon Dioxide (22-30) mmol/L BUN (7-17) mg/dL Creatinine (0.52-1.04) mg/dL Glucose (74-99) mg/dL POC Glucose (mg/dL) 111 H (75-99) mg/dL Hemoglobin A1c 6.6 H (4.2-6.1) % Plasma Lactic Acid Kolton 3.2 H* (0.7-2.0) mmol/L Calcium (8.4-10.2) mg/dL Phosphorus (2.5-4.5) mg/dL AST (14-36) U/L Total Protein (6.3-8.2) g/dL Albumin (3.5-5.0) g/dL 02/18/17 02/18/17 02/18/17 Range/Units 11:19 11:22 13:45 WBC (3.8-10.6) k/uL RBC (3.80-5.40) m/uL Hgb (11.4-16.0) gm/dL Hct (34.0-46.0) % APTT (22.0-30.0) sec Sodium (137-145) mmol/L Potassium (3.5-5.1) mmol/L Chloride (98-107) mmol/L Carbon Dioxide (22-30) mmol/L BUN (7-17) mg/dL Creatinine (0.52-1.04) mg/dL Glucose (74-99) mg/dL POC Glucose (mg/dL) 107 H (75-99) mg/dL Hemoglobin A1c (4.2-6.1) % Plasma Lactic Acid Kolton 2.4 H* (0.7-2.0) mmol/L Calcium (8.4-10.2) mg/dL Phosphorus 5.1 H (2.5-4.5) mg/dL AST (14-36) U/L Total Protein (6.3-8.2) g/dL Albumin (3.5-5.0) g/dL 02/18/17 02/18/17 02/18/17 Range/Units 14:50 16:29 20:21 WBC (3.8-10.6) k/uL RBC (3.80-5.40) m/uL Hgb (11.4-16.0) gm/dL Hct (34.0-46.0) % APTT 40.1 H (22.0-30.0) sec Sodium (137-145) mmol/L Potassium (3.5-5.1) mmol/L Chloride (98-107) mmol/L Carbon Dioxide (22-30) mmol/L BUN (7-17) mg/dL Creatinine (0.52-1.04) mg/dL Glucose (74-99) mg/dL POC Glucose (mg/dL) 149 H 138 H (75-99) mg/dL Hemoglobin A1c (4.2-6.1) % Plasma Lactic Acid Kolton (0.7-2.0) mmol/L Calcium (8.4-10.2) mg/dL Phosphorus (2.5-4.5) mg/dL AST (14-36) U/L Total Protein (6.3-8.2) g/dL Albumin (3.5-5.0) g/dL 02/18/17 02/19/17 02/19/17 Range/Units 23:13 05:36 05:36 WBC 25.7 H* (3.8-10.6) k/uL RBC 3.36 L (3.80-5.40) m/uL Hgb 11.1 L (11.4-16.0) gm/dL Hct 33.3 L (34.0-46.0) % APTT 55.9 H (22.0-30.0) sec Sodium 131 L (137-145) mmol/L Potassium 6.0 H (3.5-5.1) mmol/L Chloride 97 L (98-107) mmol/L Carbon Dioxide 17 L (22-30) mmol/L BUN 79 H (7-17) mg/dL Creatinine 6.54 H* (0.52-1.04) mg/dL Glucose 218 H (74-99) mg/dL POC Glucose (mg/dL) (75-99) mg/dL Hemoglobin A1c (4.2-6.1) % Plasma Lactic Acid Kolton (0.7-2.0) mmol/L Calcium 7.2 L (8.4-10.2) mg/dL Phosphorus (2.5-4.5) mg/dL AST 13 L (14-36) U/L Total Protein 5.0 L (6.3-8.2) g/dL Albumin 2.5 L (3.5-5.0) g/dL 02/19/17 02/19/17 Range/Units 05:36 05:52 WBC (3.8-10.6) k/uL RBC (3.80-5.40) m/uL Hgb (11.4-16.0) gm/dL Hct (34.0-46.0) % APTT 46.6 H (22.0-30.0) sec Sodium (137-145) mmol/L Potassium (3.5-5.1) mmol/L Chloride (98-107) mmol/L Carbon Dioxide (22-30) mmol/L BUN (7-17) mg/dL Creatinine (0.52-1.04) mg/dL Glucose (74-99) mg/dL POC Glucose (mg/dL) 231 H (75-99) mg/dL Hemoglobin A1c (4.2-6.1) % Plasma Lactic Acid Kolton (0.7-2.0) mmol/L Calcium (8.4-10.2) mg/dL Phosphorus (2.5-4.5) mg/dL AST (14-36) U/L Total Protein (6.3-8.2) g/dL Albumin (3.5-5.0) g/dL Assessment and Plan Plan: Assessment: #1. End-stage renal disease maintained on hemodialysis on a Thursday schedule via left upper extremity AV fistula. #2. Sepsis. Questionable pneumonia. She does have elevated white count and was also hypotensive. She was febrile as well. This may also be related to severe ALLERGY reaction to the contrast dye. #3. History of liver transplant maintained on cyclosporine and prednisone. #4. Insulin-dependent diabetes mellitus. #5. 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 Currently not bradycardic. Pacemaker placement on hold due to rash. #6. Chronic kidney disease mineral bone disease. #7. Hyperkalemia secondary to chronic kidney disease. Plan: Hemodialysis today with goal 1-1/2 L ultrafiltration. Antibiotics per infectious disease recommendations. Follow-up cultures. Maintain mgbind with meals. Renal diet.
--- NOTE | 2017-02-19 11:46 | P.PN ---
Subjective Principal diagnosis: Bradycardia, hypotension This is a 77-year-old female with history of end-stage renal disease, patient is on hemodialysis on Tuesdays and Saturdays, this is done via left upper extremity AV fistula. Patient presented to [facility] with bradycardia and heart rate in the low 30s. Patient was seen by cardiology , and arrangements were made for her to be transferred to [facility] for pacemaker placement. However her rate seems to have stabilized since she was brought in to [facility], patient was noted to be hypotensive with systolic pressure in the 70s upon presentation. So far the patient received 2 L of fluid boluses, and she was also noted to have fever, with leukocytosis, patient received empiric antibiotics by nephrology, vancomycin and Zosyn were given. Patient was also given steroids since she is a liver transplant patient and mentate normally on cyclosporine and prednisone. At any rate, at the time of my evaluation, her blood pressure was noted to be in the mid 90s systolic, with a mean arterial pressure of 66. So far the patient has not received any norepinephrine, however I made clear instructions for the patient to be placed on norepinephrine if her blood pressure continues to show mean arterial pressure is below 65. And the patient would have to be transferred to the intensive care unit. During my evaluation, patient denied any headaches no blurred vision no dizziness. No shortness of breath no cough no wheezing no chest pain. No nausea no vomiting no abdominal pain no melena no hematemesis no dysuria and no frequency no urgency. Patient actually seemed quite stable clinically, but the blood pressure was again noted to be marginal mean of 66. The patient is seen again today 02/19/2017 in follow-up on the selective care unit. She is awake and alert in no acute distress. She did not require any pressors following her ALLERGIC reaction yesterday following a right upper extremity venogram being checked for patency for pending permanent pacemaker implantation. She has recovered well. She denies any shortness of breath, cough or congestion. No chest pain, palpitations, lightheadedness or dizziness. Her lactic acid has recovered to 1.2. Currently hyperkalemic at 6.0. Creatinine 6.54. She will be receiving hemodialysis today via her left upper extremity fistula. White count trending down currently at 25. She is maintained on vancomycin. She remains on IV Solu-Medrol 60 mg every 8 hours. She remains on heparin drip. She has no pulmonary complaints. She is maintaining O2 saturations in the upper 90s on room air. Hemodynamically stable. Objective - Vital Signs Vital signs: Vital Signs Temp 97.5 F L 02/19/17 07:46 Pulse 60 02/19/17 07:46 Resp 18 02/19/17 07:46 BP 146/60 02/19/17 07:46 Pulse Ox 98 02/19/17 07:46 Intake & Output 02/18/17 02/19/17 02/19/17 18:59 06:59 18:59 Intake Total 3057.497 642.226 120 Balance 3057.497 642.226 120 Weight 76.5 kg Intake: IV 2410 321.3 0.9@10mls/ hr 90 Heparin Sodium,Porcine/ 160 231.3 D5w Pmx 25,000 unit In Dextrose/Water 1 500ml. bag @ 12 UNITS/KG/HR 18. 12 mls/hr IV .Q24H [facility] Rx #:[id number] Sodium Chloride 0.9% 1, 2000 000 ml @ 999 mls/hr IV . Q1H1M [facility] Rx#:[id number] Vancomycin 1,500 mg In 250 Sodium Chloride 0.9% 250 ml @ 125 mls/hr IVPB ONCE [facility] Rx#:[id number] Intake, IV Titration 367.497 320.926 Amount Heparin Sodium,Porcine/ 367.497 320.926 D5w Pmx 25,000 unit In Dextrose/Water 1 500ml. bag @ 12 UNITS/KG/HR 18. 12 mls/hr IV .Q24H [facility] Rx #:[id number] Oral 280 120 Other: Voiding Method Toilet # Voids 1 # Bowel Movements 2 - Exam GENERAL EXAM: Alert, comfortable in no apparent distress. HEAD: Normocephalic. EYES: Normal reaction of pupils, equal size. NOSE: Clear with pink turbinates. THROAT: No erythema or exudates. NECK: No masses, no JVD. CHEST: No chest wall deformity. LUNGS: Equal air entry with no crackles, wheeze, rhonchi or dullness. CVS: S1 and S2 normal with no audible murmurs, regular rhythm. ABDOMEN: No hepatosplenomegaly, normal bowel sounds, no guarding or rigidity. SPINE: No scoliosis or deformity SKIN: No rashes CENTRAL NERVOUS SYSTEM: No focal deficits, tone is normal in all 4 extremities. Extremities: There is no significant peripheral edema. Left AV fistula and paced. Peripheral pulses are intact. No clubbing, no cyanosis. - Labs CBC & Chem 7: 02/19/17 05:36 02/19/17 05:36 Labs: Abnormal Lab Results - Last 24 Hours (Table) 02/18/17 02/18/17 02/18/17 Range/Units 05:36 11:22 13:45 WBC (3.8-10.6) k/uL RBC (3.80-5.40) m/uL Hgb (11.4-16.0) gm/dL Hct (34.0-46.0) % APTT (22.0-30.0) sec Sodium (137-145) mmol/L Potassium (3.5-5.1) mmol/L Chloride (98-107) mmol/L Carbon Dioxide (22-30) mmol/L BUN (7-17) mg/dL Creatinine (0.52-1.04) mg/dL Glucose (74-99) mg/dL POC Glucose (mg/dL) (75-99) mg/dL Hemoglobin A1c 6.6 H (4.2-6.1) % Plasma Lactic Acid Kolton 2.4 H* (0.7-2.0) mmol/L Calcium (8.4-10.2) mg/dL Phosphorus 5.1 H (2.5-4.5) mg/dL AST (14-36) U/L Total Protein (6.3-8.2) g/dL Albumin (3.5-5.0) g/dL 02/18/17 02/18/17 02/18/17 Range/Units 14:50 16:29 20:21 WBC (3.8-10.6) k/uL RBC (3.80-5.40) m/uL Hgb (11.4-16.0) gm/dL Hct (34.0-46.0) % APTT 40.1 H (22.0-30.0) sec Sodium (137-145) mmol/L Potassium (3.5-5.1) mmol/L Chloride (98-107) mmol/L Carbon Dioxide (22-30) mmol/L BUN (7-17) mg/dL Creatinine (0.52-1.04) mg/dL Glucose (74-99) mg/dL POC Glucose (mg/dL) 149 H 138 H (75-99) mg/dL Hemoglobin A1c (4.2-6.1) % Plasma Lactic Acid Kolton (0.7-2.0) mmol/L Calcium (8.4-10.2) mg/dL Phosphorus (2.5-4.5) mg/dL AST (14-36) U/L Total Protein (6.3-8.2) g/dL Albumin (3.5-5.0) g/dL 02/18/17 02/19/17 02/19/17 Range/Units 23:13 05:36 05:36 WBC 25.7 H* (3.8-10.6) k/uL RBC 3.36 L (3.80-5.40) m/uL Hgb 11.1 L (11.4-16.0) gm/dL Hct 33.3 L (34.0-46.0) % APTT 55.9 H (22.0-30.0) sec Sodium 131 L (137-145) mmol/L Potassium 6.0 H (3.5-5.1) mmol/L Chloride 97 L (98-107) mmol/L Carbon Dioxide 17 L (22-30) mmol/L BUN 79 H (7-17) mg/dL Creatinine 6.54 H* (0.52-1.04) mg/dL Glucose 218 H (74-99) mg/dL POC Glucose (mg/dL) (75-99) mg/dL Hemoglobin A1c (4.2-6.1) % Plasma Lactic Acid Kolton (0.7-2.0) mmol/L Calcium 7.2 L (8.4-10.2) mg/dL Phosphorus (2.5-4.5) mg/dL AST 13 L (14-36) U/L Total Protein 5.0 L (6.3-8.2) g/dL Albumin 2.5 L (3.5-5.0) g/dL 02/19/17 02/19/17 Range/Units 05:36 05:52 WBC (3.8-10.6) k/uL RBC (3.80-5.40) m/uL Hgb (11.4-16.0) gm/dL Hct (34.0-46.0) % APTT 46.6 H (22.0-30.0) sec Sodium (137-145) mmol/L Potassium (3.5-5.1) mmol/L Chloride (98-107) mmol/L Carbon Dioxide (22-30) mmol/L BUN (7-17) mg/dL Creatinine (0.52-1.04) mg/dL Glucose (74-99) mg/dL POC Glucose (mg/dL) 231 H (75-99) mg/dL Hemoglobin A1c (4.2-6.1) % Plasma Lactic Acid Kol[place] (0.7-2.0) mmol/L Calcium (8.4-10.2) mg/dL Phosphorus (2.5-4.5) mg/dL AST (14-36) U/L Total Protein (6.3-8.2) g/dL Albumin (3.5-5.0) g/dL Assessment and Plan Plan: Impression: 1 strongly suspect acute sepsis, exact source is not clear, could very well be related to her dialysis, she has no active pulmonary symptoms whatsoever, and her chest x-ray is showing atelectasis, strongly doubt pneumonia. Patient did receive vancomycin and Zosyn, she also received 2 L of fluid boluses. 02/19/2017 the patient recovered well from her ALLERGIC reaction to the venogram. She did not require any pressor support. She is currently hemodynamically stable. 2 history of end-stage renal disease on hemodialysis via left upper extremity AV fistula. 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 6 history of insulin-dependent diabetes 7 history of peripheral vessel occlusive disease and previous right below-knee amputation. Plan: The patient was seen and evaluated by Dr. Brown. She is stable from the pulmonary standpoint. She did not require transfer to the intensive care unit. She has no pulmonary complaints. We'll see the patient on as-needed basis.
[2017-02-19 12:05] LABS: Glucose,Whole Blood 248 mg/dL (75-99)
--- NOTE | 2017-02-19 13:34 | P.PN ---
Subjective This is a pleasant 77-year-old old lady patient of Dr. Pruitt, known history of CAD diabetes mellitus thyroid disorder hypertension liver transplant awaiting for AV graft fistula and pacemaker placement, transferred to hospital secondary to bradycardia. She was recently transferred from [facility] from her recent IV contrast drug reaction presenting with generalized urticaria and rashes. Patient did not have any shortness of breath at the time and has some nausea with itching. Prior to this Patient had a venogram done on [facility] on February 15 for which she has no IV contrast ALLERGY and was premedicated with Benadryl and IV steroids. Patient was subsequently sent home, the next day she showed in the emergency room are [facility] with significant hives all over her body without any angioedema. Prior to her being discharged to notice her heart rate being in the low 30s and was transferred to [facility] for pacemaker placement. When she was evaluated today on she had significant worsening of the rash scattered all over her body and is red and inflamed starting from neck down up to her groin bilaterally anteriorly and posteriorly, with small vesicular eruption or bullae on the left torso. This was significantly different from her original presentation 2 days ago. At [facility] she was given IV Solu-Medrol, Claritin and Pepcid, and was transfered here with Medrol Dosepak Selective care floor she has been febrile, and was noted to be hypotensive and required fluid resuscitation, patient currently is on IV Solu-Medrol with consults to Dr. obregon cardiology, pacemaker placement is canceled secondary to the rash and fever, also Dr. Bronw from pulmonary medicine, and nephrology consultation she required 2 L of fluid boluses IV antibiotics vancomycin and Zosyn were given, infectious disease was counseled did Dr. Lau along with Dr. Sal from nephrology patient is stabilized and awaiting possible ICU transfer should she be more hypotensive. On the time of dictation blood pressure currently is on at, systolic 93/79 02/19: Patient has been afebrile and hemodynamically stable. She is currently on Benadryl scheduled and Solu-Medrol 60 mg IV every 8 hours and dwill start tapering. Rash is slightly less red today, White count is down to 25.7. Blood sugars are elevated with hemoglobin A1c of 6.6. Nephrology is following with recommendations for hemodialysis today. Dr. Lau is following from infectious disease and continued on vancomycin. Blood cultures remain as status received. Appetite is decreased. No diarrhea. Objective - Vital Signs Vital signs: Vital Signs Temp 97.5 F L 02/19/17 07:46 Pulse 60 02/19/17 07:46 Resp 18 02/19/17 07:46 BP 146/60 02/19/17 07:46 Pulse Ox 98 02/19/17 07:46 Intake & Output 02/18/17 02/19/17 02/19/17 18:59 06:59 18:59 Intake Total 3057.497 642.226 120 Balance 3057.497 642.226 120 Weight 76.5 kg Intake: IV 2410 321.3 0.9@10mls/ hr 90 Heparin Sodium,Porcine/ 160 231.3 D5w Pmx 25,000 unit In Dextrose/Water 1 500ml. bag @ 12 UNITS/KG/HR 18. 12 mls/hr IV .Q24H [facility] Rx #:[id number] Sodium Chloride 0.9% 1, 2000 000 ml @ 999 mls/hr IV . Q1H1M [facility] Rx#:[id number] Vancomycin 1,500 mg In 250 Sodium Chloride 0.9% 250 ml @ 125 mls/hr IVPB ONCE [facility] Rx#:[id number] Intake, IV Titration 367.497 320.926 Amount Heparin Sodium,Porcine/ 367.497 320.926 D5w Pmx 25,000 unit In Dextrose/Water 1 500ml. bag @ 12 UNITS/KG/HR 18. 12 mls/hr IV .Q24H [facility] Rx #:[id number] Oral 280 120 Other: Voiding Method Toilet # Voids 1 # Bowel Movements 2 - Exam General appearance: average body habitus, cooperative, no acute distress - EENT Eyes: anicteric sclerae, EOMI, PERRLA, normal appearance ENT: hearing grossly normal, NA/AT, normal oropharynx - Neck Neck: normal ROM - Respiratory Respiratory: bilateral: CTA, diminished, negative: dullness, rales, rhonchi, wheezing - Cardiovascular Rhythm: regular Heart sounds: normal: S1, S2 Abnormal Heart Sounds: no systolic murmur, no diastolic murmur, no rub, no S3 Gallop, no S4 Gallop, no click, no other - Gastrointestinal General gastrointestinal: decreased bowel sounds, soft - Integumentary Integumentary: normal, normal turgor, rash (Confluent redness with warmth all over the abdomen anterior and posteriorly, chest anterior posteriorly, bilateral groin and thigh. Distally, with blanching phenomenon no open sores, bullae noted on the left torso without any signs off shingle rash) - Neurologic Neurologic: CNII-XII intact - Labs CBC & Chem 7: 02/19/17 05:36 02/19/17 05:36 Labs: Abnormal Lab Results - Last 24 Hours (Table) 02/18/17 02/18/17 02/18/17 Range/Units 05:36 11:19 11:22 WBC (3.8-10.6) k/uL RBC (3.80-5.40) m/uL Hgb (11.4-16.0) gm/dL Hct (34.0-46.0) % APTT (22.0-30.0) sec Sodium (137-145) mmol/L Potassium (3.5-5.1) mmol/L Chloride (98-107) mmol/L Carbon Dioxide (22-30) mmol/L BUN (7-17) mg/dL Creatinine (0.52-1.04) mg/dL Glucose (74-99) mg/dL POC Glucose (mg/dL) 107 H (75-99) mg/dL Hemoglobin A1c 6.6 H (4.2-6.1) % Plasma Lactic Acid [place] (0.7-2.0) mmol/L Calcium (8.4-10.2) mg/dL Phosphorus 5.1 H (2.5-4.5) mg/dL AST (14-36) U/L Total Protein (6.3-8.2) g/dL Albumin (3.5-5.0) g/dL 02/18/17 02/18/17 02/18/17 Range/Units 13:45 14:50 16:29 WBC (3.8-10.6) k/uL RBC (3.80-5.40) m/uL Hgb (11.4-16.0) gm/dL Hct (34.0-46.0) % APTT 40.1 H (22.0-30.0) sec Sodium (137-145) mmol/L Potassium (3.5-5.1) mmol/L Chloride (98-107) mmol/L Carbon Dioxide (22-30) mmol/L BUN (7-17) mg/dL Creatinine (0.52-1.04) mg/dL Glucose (74-99) mg/dL POC Glucose (mg/dL) 149 H (75-99) mg/dL Hemoglobin A1c (4.2-6.1) % Plasma Lactic Acid Kol[place] 2.4 H* (0.7-2.0) mmol/L Calcium (8.4-10.2) mg/dL Phosphorus (2.5-4.5) mg/dL AST (14-36) U/L Total Protein (6.3-8.2) g/dL Albumin (3.5-5.0) g/dL 02/18/17 02/18/17 02/19/17 Range/Units 20:21 23:13 05:36 WBC 25.7 H* (3.8-10.6) k/uL RBC 3.36 L (3.80-5.40) m/uL Hgb 11.1 L (11.4-16.0) gm/dL Hct 33.3 L (34.0-46.0) % APTT 55.9 H (22.0-30.0) sec Sodium (137-145) mmol/L Potassium (3.5-5.1) mmol/L Chloride (98-107) mmol/L Carbon Dioxide (22-30) mmol/L BUN (7-17) mg/dL Creatinine (0.52-1.04) mg/dL Glucose (74-99) mg/dL POC Glucose (mg/dL) 138 H (75-99) mg/dL Hemoglobin A1c (4.2-6.1) % Plasma Lactic Acid Kol[place] (0.7-2.0) mmol/L Calcium (8.4-10.2) mg/dL Phosphorus (2.5-4.5) mg/dL AST (14-36) U/L Total Protein (6.3-8.2) g/dL Albumin (3.5-5.0) g/dL 02/19/17 02/19/17 02/19/17 Range/Units 05:36 05:36 05:52 WBC (3.8-10.6) k/uL RBC (3.80-5.40) m/uL Hgb (11.4-16.0) gm/dL Hct (34.0-46.0) % APTT 46.6 H (22.0-30.0) sec Sodium 131 L (137-145) mmol/L Potassium 6.0 H (3.5-5.1) mmol/L Chloride 97 L (98-107) mmol/L Carbon Dioxide 17 L (22-30) mmol/L BUN 79 H (7-17) mg/dL Creatinine 6.54 H* (0.52-1.04) mg/dL Glucose 218 H (74-99) mg/dL POC Glucose (mg/dL) 231 H (75-99) mg/dL Hemoglobin A1c (4.2-6.1) % Plasma Lactic Acid Kol[place] (0.7-2.0) mmol/L Calcium 7.2 L (8.4-10.2) mg/dL Phosphorus (2.5-4.5) mg/dL AST 13 L (14-36) U/L Total Protein 5.0 L (6.3-8.2) g/dL Albumin 2.5 L (3.5-5.0) g/dL Assessment and Plan Plan: 1. Acute anaphylactic reaction with IV contrast exposure, which generalized tachycardia redness confluent erythematous eruption with vesicular eruption in the torso, receive IV Solu-Medrol and IV Pepcid, Claritin, 2. Acute hemodynamic instability secondary to acute anaphylactic reaction, fluids for hydration, maintain IV steroids, with a fever cultures were obtained and infectious Consult were made. Patient is on standby for ICU, would need Levophed if the blood pressure drops even further 3. Febrile episode possibly related to drug IV contrast dye exposure, patient is cultured from the urine blood and infectious disease consult is seeing her, patient is receiving IV pain unsure whether urine can be obtained secondary to her end-stage renal disease 4. Sick sinus syndrome requiring pacemaker placement this is currently on hold secondary to confluent rash in the torso, monitor for significant bradycardia, 5. CAD currently on aspirin, hydralazine on hold, Lipitor, patient has multiple drug ALLERGIES 6. Known history of liver transplant and chronic immunosuppression patient's chronically on oral prednisone and cyclosporine 7. Hypothyroidism on levothyroxine 150 mg daily 8 Lactic acidosis possibly related to early sepsis, leukocytosis, against end- stage renal disease 9 End-stage renal disease on hemodialysis Saturdays by her left upper extremity AV fistula 10 Diabetes mellitus type 2 on NovoLog Mix 70/30 patient will be on NovoLog sliding scale and Accu-Cheks 11 Hyperlipidemia on Zocor 10, 12 Hypertension currently on hydralazine 50 mg twice a day which is on hold secondary to hemodynamic instability with hypotension Discharge plan: Return home. PT consult added. Impression and plan of care have been directed as dictated by the signing physician. Marzena Tatum nurse practitioner acting as scribe for signing physician.
[2017-02-19] MEDS: HEPARIN SODIUM,PORCINE/D5W PMX 25,000 UNIT in DEXTROSE/WATER 1 500ML.BAG IV SCH (15:53)
[2017-02-19 16:49] LABS: Glucose,Whole Blood 152 mg/dL (75-99)
[2017-02-19] MEDS: VANCOMYCIN 1,500 MG in SODIUM CHLORIDE 0.9% 250 ML IVPB ONE ×2 (16:57→20:05)
[2017-02-19] MEDS: WARFARIN 2.5 MG TAB PO SCH (16:58)
[2017-02-19] MEDS: CHOLECALCIFEROL 1,000 UNIT TAB PO SCH (20:14)
[2017-02-19] MEDS: ATORVASTATIN 10 MG TAB PO SCH ×2 (20:14→20:17)
[2017-02-19] MEDS: ASPIRIN 81 MG CHEW PO SCH (20:14)
[2017-02-19 20:15] LABS: Glucose,Whole Blood 199 mg/dL (75-99)
[2017-02-19] MEDS: CALCIUM CARB-MAG CARB-FOLIC 1 EACH TAB PO SCH (20:39)
[2017-02-20 06:13] LABS: Glucose,Whole Blood 209 mg/dL (75-99)
[2017-02-20 06:33] LABS: CH 31.4; CHCM 33.1; HCT 34.1 % (34.0-46.0); HDW 2.59; HGB 11.3 gm/dL (11.4-16.0); MCH 31.6 pg (25.0-35.0); MCHC 33.1 g/dL (31.0-37.0); MCV 95.5 fL (80.0-100.0); Mean Platelet Volume 8.5; RBC 3.57 m/uL (3.80-5.40); RDW 15.2 % (11.5-15.5); WBC 19.7 k/uL (3.8-10.6)
[2017-02-20 06:37] LABS: Partial Thromboplastin Time 46.1 sec (22.0-30.0); Prothrombin Time 10.5 sec (9.0-12.0)
[2017-02-20 06:42] LABS: Potassium 5.1 mmol/L (3.5-5.1); Total Protein 5.4 g/dL (6.3-8.2)
[2017-02-20 06:44] LABS: Calcium 7.9 mg/dL (8.4-10.2)
[2017-02-20] MEDS: LEVOTHYROXINE 75 MCG TAB PO SCH (06:57)
[2017-02-20] MEDS: INSULIN LISPRO (humaLOG) 300 UNIT/3 ML VIAL SQ SCH ×2 (07:00→11:49)
[2017-02-20] MEDS: INSULN ASP PRT/INSULIN ASPART 100 UNIT/ML 10 ML VIAL SQ SCH (07:04)
--- NOTE | 2017-02-20 08:00 | PN ---
DATE OF SERVICE: 02/19/2017 Reason for follow-up is fever and rash. INTERVAL HISTORY: The patient overall feels better and has improved. She has been breathing comfortably. The rash has decreased in intensity. Denies significant itching. No chest pain. No cough. No abdominal pain and no diarrhea. On examination, blood pressure is 133/65 with a pulse of 52, temperature 97.8. She is 94% on room air. General description is an elderly female lying in bed in no distress. RESPIRATORY SYSTEM: Unlabored breathing. Clear to auscultation anteriorly. HEART: S1, S2 with regular rate and rhythm. ABDOMEN: Soft. No tenderness. LABS: Hemoglobin is 11.1, white count 25.7 with a BUN of 17, and creatinine 6.5. Blood culture so far negative. DIAGNOSTIC IMPRESSION AND PLAN: Patient with fever with extensive rash and elevated white count more likely an allergic reaction to the IV dye. Clinically doubt any systemic infection. Overall feels better and has improved. Although white count remains to be elevated because of the extensive rash the patient has she does not look toxic. If the culture remains negative, antibiotic can be safely discontinued with close outpatient follow-up.
--- NOTE | 2017-02-20 08:02 | P.PN ---
Subjective Patient is seen in follow-up for end-stage renal disease. She is maintained on hemodialysis on a Thursday schedule via left upper extremity AV fistula. Patient was transferred from [facility] with bradycardia and a potential pacemaker placement. She was noted to have a rash on her chest which is presumably due to contrast dye reaction from the venogram that she had recently. She was hypotensive with an elevated lactic acidosis level. There was concern for sepsis. She did receive 2 L fluid resuscitation. Lactic acid level came down to 1.2. White count is also trending down and is 19.7 this morning. She is currently awake and alert. Denies any chest pain or shortness of breath. No vomiting or diarrhea. She tolerated hemodialysis without any issues yesterday. Vital signs are stable. General: The patient appeared well nourished and normally developed. HEENT: Head exam is unremarkable. Neck is without jugular venous distension. LUNGS: Lungs are clear to auscultation and percussion. Breath sounds decreased. HEART: Rate and Rhythm are regular. First and second heart sounds normal. No murmurs, rubs or gallops. ABDOMEN: Abdominal exam reveals normal bowel sounds. Non-tender and non- distended. No evidence of peritonitis. EXTREMITITES: No clubbing, cyanosis, or edema. Right [id number] amputation noted. Objective - Vital Signs Vital signs: Vital Signs Temp 98 F 02/20/17 04:00 Pulse 59 L 02/20/17 04:00 Resp 18 02/20/17 04:00 BP 156/77 02/20/17 04:00 Pulse Ox 94 L 02/20/17 04:00 Intake & Output 02/19/17 02/20/17 02/20/17 18:59 06:59 18:59 Intake Total 836.154 642.37 125 Output Total 0 Balance 836.154 642.37 125 Weight 78 kg Intake: IV 392.37 0.9@10mls/ hr 110 Heparin Sodium,Porcine/ 282.37 D5w Pmx 25,000 unit In Dextrose/Water 1 500ml. bag @ 12 UNITS/KG/HR 18. 12 mls/hr IV .Q24H [facility] Rx #:[id number] Intake, IV Titration 242.154 250 Amount Heparin Sodium,Porcine/ 242.154 D5w Pmx 25,000 unit In Dextrose/Water 1 500ml. bag @ 12 UNITS/KG/HR 18. 12 mls/hr IV .Q24H [facility] Rx #:[id number] Vancomycin 1,500 mg In 250 Sodium Chloride 0.9% 250 ml @ 125 mls/hr IVPB ONCE ONE Rx#:[id number] Oral 594 125 Output: Urine 0 Other: Voiding Method Toilet # Bowel Movements 2 1 - Labs CBC & Chem 7: 02/20/17 06:07 02/20/17 06:07 Labs: Abnormal Lab Results - Last 24 Hours (Table) 02/19/17 02/19/17 02/19/17 Range/Units 11:41 16:34 20:11 WBC (3.8-10.6) k/uL RBC (3.80-5.40) m/uL Hgb (11.4-16.0) gm/dL APTT (22.0-30.0) sec Sodium (137-145) mmol/L Chloride (98-107) mmol/L Carbon Dioxide (22-30) mmol/L BUN (7-17) mg/dL Creatinine (0.52-1.04) mg/dL Glucose (74-99) mg/dL POC Glucose (mg/dL) 248 H 152 H 199 H (75-99) mg/dL Calcium (8.4-10.2) mg/dL Total Protein (6.3-8.2) g/dL Albumin (3.5-5.0) g/dL 02/20/17 02/20/17 02/20/17 Range/Units 06:04 06:07 06:07 WBC 19.7 H (3.8-10.6) k/uL RBC 3.57 L (3.80-5.40) m/uL Hgb 11.3 L (11.4-16.0) gm/dL APTT (22.0-30.0) sec Sodium 132 L (137-145) mmol/L Chloride 96 L (98-107) mmol/L Carbon Dioxide 21 L (22-30) mmol/L BUN 66 H (7-17) mg/dL Creatinine 4.56 H (0.52-1.04) mg/dL Glucose 229 H (74-99) mg/dL POC Glucose (mg/dL) 209 H (75-99) mg/dL Calcium 7.9 L (8.4-10.2) mg/dL Total Protein 5.4 L (6.3-8.2) g/dL Albumin 2.7 L (3.5-5.0) g/dL 02/20/17 Range/Units 06:07 WBC (3.8-10.6) k/uL RBC (3.80-5.40) m/uL Hgb (11.4-16.0) gm/dL APTT 46.1 H (22.0-30.0) sec Sodium (137-145) mmol/L Chloride (98-107) mmol/L Carbon Dioxide (22-30) mmol/L BUN (7-17) mg/dL Creatinine (0.52-1.04) mg/dL Glucose (74-99) mg/dL POC Glucose (mg/dL) (75-99) mg/dL Calcium (8.4-10.2) mg/dL Total Protein (6.3-8.2) g/dL Albumin (3.5-5.0) g/dL Microbiology - Last 24 Hours (Table) 02/18/17 09:32 Blood Culture - Preliminary Blood No Growth after 24 hours 02/18/17 10:26 Blood Culture - Preliminary Blood No Growth after 24 hours Assessment and Plan Plan: Assessment: #1. End-stage renal disease maintained on hemodialysis on a Thursday schedule via left upper extremity AV fistula. #2. Leukocytosis with hypo-tension. Improving. There was concern for sepsis - cultures negative. No obvious source of infection. This may also be related to severe ALLERGY reaction to the contrast dye. #3. History of liver transplant maintained on cyclosporine and prednisone. #4. Insulin-dependent diabetes mellitus. #5. 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 Currently not bradycardic. Pacemaker placement on hold due to rash. #6. Chronic kidney disease mineral bone disease. #7. Hyperkalemia secondary to chronic kidney disease. Improved. Plan: Hemodialysis tomorrow with goal 1-1/2 L ultrafiltration. Antibiotics per infectious disease recommendations. Follow-up cultures. Maintain mgbind with meals. Renal diet.
[2017-02-20] MEDS ORDERED: SODIUM BICARBONATE TAB 650 MG TAB PO SCH (09:00)
[2017-02-20 09:47] VITALS: TEMP 97.5
[2017-02-20] MEDS: methylPREDNISolone SOD SUCCI 40 MG/ML 1 ML VIAL IV SCH ×2 (09:47→13:31)
[2017-02-20] MEDS: diphenhydrAMINE 25 MG CAP PO SCH ×2 (09:48→13:49)
[2017-02-20 11:50] LABS: Glucose,Whole Blood 274 mg/dL (75-99)
[2017-02-20 12:07] VITALS: BP 157/68; PULSE 62
--- NOTE | 2017-02-20 13:12 | P.DS ---
Providers Date of admission: 02/17/17 18:03 Expected date of discharge: 02/20/17 Attending physician: Albin Brewer Consults: 02/18/17 09:02 Consult Physician Routine Consulting Provider: Cecil Obregon Consult Reason/Comments: Future pacer Do you want consulting provider notified?: Already Contacted 02/18/17 10:38 Consult Physician Stat Consulting Provider: Rolo Dey Consult Reason/Comments: RENAL PATIENT- LACTIC ACID 3.2 Do you want consulting provider notified?: Yes 02/18/17 10:45 Consult Physician Urgent Consulting Provider: Ellen Lau Consult Reason/Comments: FEVER, SEPSIS Do you want consulting provider notified?: Yes 02/18/17 11:21 Consult Physician Stat Consulting Provider: Vidal Brown Consult Reason/Comments: ICU MANAGEMENT Do you want consulting provider notified?: Yes Primary care physician: Bertha Edmond [place] Hospital Course: This is a pleasant 77-year-old old lady patient of Dr. Pruitt, known history of CAD diabetes mellitus thyroid disorder hypertension liver transplant awaiting for AV graft fistula and pacemaker placement, transferred to hospital secondary to bradycardia. She was recently transferred from [facility] from her recent IV contrast drug reaction presenting with generalized urticaria and rashes. Patient did not have any shortness of breath at the time and has some nausea with itching. Prior to this Patient had a venogram done on [facility] on February 15 for which she has no IV contrast ALLERGY and was premedicated with Benadryl and IV steroids. Patient was subsequently sent home, the next day she showed in the emergency room are [facility] with significant hives all over her body without any angioedema. Prior to her being discharged to notice her heart rate being in the low 30s and was transferred to [facility] for pacemaker placement. When she was evaluated today on she had significant worsening of the rash scattered all over her body and is red and inflamed starting from neck down up to her groin bilaterally anteriorly and posteriorly, with small vesicular eruption or bullae on the left torso. This was significantly different from her original presentation 2 days ago. At [facility] she was given IV Solu-Medrol, Claritin and Pepcid, and was transfered here with Medrol Dosepak Selective care floor she has been febrile, and was noted to be hypotensive and required fluid resuscitation, patient currently is on IV Solu-Medrol with consults to Dr. obregon cardiology, pacemaker placement is canceled secondary to the rash and fever, also Dr. Brown from pulmonary medicine, and nephrology consultation she required 2 L of fluid boluses IV antibiotics vancomycin and Zosyn were given, infectious disease was counseled did Dr. Lau along with Dr. Sal from nephrology patient is stabilized and awaiting possible ICU transfer should she be more hypotensive. On the time of dictation blood pressure currently is on at, systolic 93/79 02/19: Patient has been afebrile and hemodynamically stable. She is currently on Benadryl scheduled and Solu-Medrol 60 mg IV every 8 hours and dwill start tapering. Rash is slightly less red today, White count is down to 25.7. Blood sugars are elevated with hemoglobin A1c of 6.6. Nephrology is following with recommendations for hemodialysis today. Dr. Lau is following from infectious disease and continued on vancomycin. Blood cultures remain as status received. Appetite is decreased. No diarrhea. 02/20: Dr. Lau has recommended that if cultures remain negative, antibiotics can be discontinued which has been done. Blood cultures are both with no growth after 24 hours. WBC count is now down to 19.7. Patient has been hemodynamically stable. Dr. Brown has signed off and will see on an as-needed basis. Patient is scheduled for hemodialysis tomorrow. Blood sugars have been elevated due to steroids. This morning, she started Solu-Medrol 40 mg every 8 hours. She is continued on a heparin drip and Coumadin. INR is 1.0. Physical therapy evaluation has been delayed due to patient receiving dialysis. Anticipate they will see her today. Rash is improving with decreased redness. Her etiology has cleared the patient for discharge. Patient is very anxious to be discharged home. Patient will be on Coumadin. Discharge diagnoses: 1. Acute anaphylactic reaction with IV contrast exposure 2. Acute hypovolemic shock secondary to acute anaphylactic reaction 3. Febrile episode possibly related to drug IV contrast dye exposure, 4. Sick sinus syndrome requiring pacemaker placement this is currently on hold 5. CAD 6. Known history of liver transplant and chronic immunosuppression 7. Hypothyroidism 8 Lactic acidosis due to anaphylaxis 9 End-stage renal disease on hemodialysis Saturdays by her left upper extremity AV fistula 10 Diabetes mellitus type 2 uncontrolled with hyperglycemia due to steroids 11 Hyperlipidemia 12 Hypertension Discharge plan: Return home. PT consult added. Impression and plan of care have been directed as dictated by the signing physician. Marzena Tatum nurse practitioner acting as scribe for signing physician. Cc: Dr. Bertha Pruitt Patient Condition at Discharge: Good Plan - Discharge Summary New Discharge Prescriptions: predniSONE 0 mg PO DIRECTED #30 tab Ranitidine HCl [Zantac] 150 mg PO BID #30 tab Sodium Bicarbonate Tab 650 mg PO BID #60 tab Warfarin [Coumadin] 2.5 mg PO DAILY@1800 #30 tab Discharge Medication List Aspirin 81 mg PO HS 04/20/14 [History] Cyclosporine, Modified [Gengraf] 25 mg PO HS 04/20/14 [History] Cyclosporine, Modified [Gengraf] 50 mg PO QAM 04/20/14 [History] Febuxostat [Uloric] 40 mg PO DAILY PRN 04/20/14 [History] Insuln Asp Prt/Insulin Aspart [NovoLOG MIX 70-30 VIAL] See Protocol SQ HS [History] Levothyroxine Sodium [Synthroid] 150 mcg PO DAILY 04/20/14 [History] Simvastatin [Zocor] 10 mg PO HS 04/20/14 [History] hydrALAZINE HCL 50 mg PO BID 04/20/14 [History] predniSONE 5 mg PO DAILY 04/20/14 [History] Cholecalciferol [Vitamin D3] 2,000 unit PO HS 02/13/17 [History] Magnebinder 300 mg PO HS 02/13/17 [History] Ranitidine HCl [Zantac] 150 mg PO BID #30 tab 02/20/17 [Rx] Sodium Bicarbonate Tab 650 mg PO BID #60 tab 02/20/17 [Rx] Warfarin [Coumadin] 2.5 mg PO DAILY@1800 #30 tab 02/20/17 [Rx] diphenhydrAMINE [Benadryl] 25 mg PO DAILY cap 02/20/17 [Rx] predniSONE 0 mg PO DIRECTED #30 tab 02/20/17 [Rx] Follow up Appointment(s)/Referral(s): Cecil Obregon MD [STAFF PHYSICIAN] - 1 Week (Office to call to make appointment) Bertha Pruitt MD [Primary Care Provider] - 02/26/17 1:45 pm Rolo Dey DO [STAFF PHYSICIAN] - 1 Week (Please call office when open) Patient Instructions/Handouts: Bradycardia (DC) Discharge Disposition: HOME SELF-CARE
--- NOTE | 2017-02-20 13:43 | PN ---
DATE OF SERVICE: 02/20/2017 Reason for followup is a fever and rash. INTERVAL HISTORY: The patient is afebrile. She is currently breathing comfortably. The patient denies significant chest pain, shortness of breath, cough. No abdominal pain. No nausea, vomiting or any diarrhea. On examination, blood pressure 157/68 with a pulse of 62, temperature 97.5. She is 97% on room air. General description is an elderly female up in the chair in no distress. RESPIRATORY SYSTEM: Unlabored breathing. Clear to auscultation anteriorly. HEART: S1, S2. Regular rate and rhythm. ABDOMEN: Soft, no tenderness. SKIN: Rash has decreased in intensity. LABS: Hemoglobin 11.3, white count 19.7. BUN of 66, creatinine 4.56. Blood culture has been negative. DIAGNOSTIC IMPRESSION AND PLAN: Patient with SIRS in a patient who did have a fever, elevated white count, more likely allergic reaction to the IV DYE the patient received for her venogram. Currently with no evidence of any infection, antibiotic can be safely discontinued. [facility]
[2017-02-20] MEDS ORDERED: hydrALAZINE HCL 50 MG TAB PO SCH (16:00)
--- NOTE | 2017-03-04 08:50 | CDI ---
In responding to this query, please exercise your independent professional judgment. The [facility] Coding Staff and Clinical Documentation Specialists appreciate your assistance in clarifying documentation, maintaining compliance with coding guidelines, accurately documenting patients condition and capturing severity of illness. The fact that a question is asked does not imply that any particular answer is desired or expected. Communication forms are a method of clarifying documentation and are not made part of the Legal Health Record. Thank you in advance for your clarification. Last Revision, July 2015 Naomi Jung [address] [facility] [place] [address] Documentation Clarification Form Date: 02/18/2017 2:35:00 PM Resubmitted 03/04/2017 From: Madhavi Enriquez CCS, CCDS Admit Date: 02/17/2017 6:03:00 PM Patient Name: Emily Hooker Visit Number: [id number] Discharge Date: 02/20/2017 Dr. Cecil Blood: Atrial fibrillation is documented in the History & Physical as newly diagnosed, started on Coumadin on admission, will be discharged on Coumadin. Transferred to ICU on day #2 due to hypotension: 74/45, 89/52. History/Risk Factors: Patient will be scheduled for a permanent pacemaker when stable. Clinical Indicators: Presented as a transfer from [facility] due to hypotension. Recent AV fistula placed left arm for hemodialysis. HR 61, 63, 72 Treatment: Heparin drip, Insulin sc, Hemodialysis scheduled for tomorrow Consults: Nephrology, Pulmonary, Infectious disease. In your professional opinion, can you please clarify the type of atrial fibrillation, if known? Chronic/Permanent Paroxysmal Persistent Other, please specify Unable to determine Please document in your progress notes and discharge summary in order to capture severity of illness and risk of mortality. Include clinical findings that support your diagnosis. FYI: Press F11 to launch patient chart Place X here if this finding has no clinical significance, is not applicable or if you are not able to provide any additional documentation. Thank You. DIO
--- NOTE | 2017-03-04 09:38 | CDI ---
In responding to this query, please exercise your independent professional judgment. The [facility] Coding Staff and Clinical Documentation Specialists appreciate your assistance in clarifying documentation, maintaining compliance with coding guidelines, accurately documenting patients condition and capturing severity of illness. The fact that a question is asked does not imply that any particular answer is desired or expected. Communication forms are a method of clarifying documentation and are not made part of the Legal Health Record. Thank you in advance for your clarification. Last Revision, November 2016 Naomi Jung [address] [facility] [place] [address] Documentation Clarification Form Date: 03/03/2017 12:56:00 PM From: Madhavi Enriquez CCS, CCDS Admit Date: 02/24/2017 8:36:00 PM Patient Name: William Bush Visit Number: [id number] Discharge Date: Dr. Adin Espinoza: CHF is documented in the ED note as "... CXR shows likely signs of congestive heart failure". Per Cardiology consult: Comes in with mental status changes, leg edema & some SOB with a diagnosis of congestive heart failure". History/Risk Factors: CHF nos, DM, bilateral leg venous stasis, Morbid Obesity, Chronic A Fib. Home Lasix 40 mg BID. Clinical Indicators: Recently discharged. Presented from F with altered mental status & elevated Creatinine. Has bilateral lower extremity erythema, severe weakness, Severe 2+ pitting bilateral legs. VS/Pulse OX: P 59*, PO 97 3Lnc Echocardiogram Results: Left ventricular systolic function low normal w/EF between 50-55%. Chest X Ray: Correlate for congestive heart failure. Treatment: po Lasix 40 mg day #1, IV Lasix 80 mg day #2, IV Lasix 40 mg q12 on . Consults: Cardiology, Nephrology, Infectious Disease In your professional opinion, can you please clarify the acuity and type of CHF if known? Systolic Heart Failure: Acute Chronic Acute on Chronic Diastolic Heart Failure: Acute Chronic Acute on Chronic Systolic & Diastolic Heart Failure: Acute Chronic Acute on Chronic Unable to determine Other, please specify Please document in your progress notes and discharge summary in order to capture severity of illness and risk of mortality. Include clinical findings that support your diagnosis. FYI: Press F11 to launch patient chart. Place X here if this finding has no clinical significance, is not applicable or if you are not able to provide any additional documentation. Thank You. MTDD
== END 2017-02-20 16:22 | disposition home or self-care (01) | DRG 915 ==
LOC: 6SEL 18:03
PROVIDERS: ADMIT Internal Medicine Geriatric Medicine; ATTEND Internal Medicine Geriatric Medicine
PROC: 5A1D00Z (ICD-10-PCS; principal; 2017-02-18)
DX: T88.6XXA Anaphylactic reaction due to adverse effect of correct drug or medicament properly administered, initial encounter (principal); N18.6 End stage renal disease; E87.2 Acidosis; I12.0 Hypertensive chronic kidney disease with stage 5 chronic kidney disease or end stage renal disease; Z94.4 Liver transplant status; I49.5 Sick sinus syndrome; E11.22 Type 2 diabetes mellitus with diabetic chronic kidney disease; Z94.0 Kidney transplant status; I48.91 Unspecified atrial fibrillation; E11.65 Type 2 diabetes mellitus with hyperglycemia; E03.9 Hypothyroidism, unspecified; T50.8X5A Adverse effect of diagnostic agents, initial encounter; E78.5 Hyperlipidemia, unspecified; E87.5 Hyperkalemia; I25.10 Atherosclerotic heart disease of native coronary artery without angina pectoris; M10.9 Gout, unspecified; T38.0X5A Adverse effect of glucocorticoids and synthetic analogues, initial encounter; Z79.4 Long term (current) use of insulin; Z79.52 Long term (current) use of systemic steroids; Z79.82 Long term (current) use of aspirin; Z79.899 Other long term (current) drug therapy; Z82.3 Family history of stroke; Z83.3 Family history of diabetes mellitus; Z85.828 Personal history of other malignant neoplasm of skin; Z87.891 Personal history of nicotine dependence; Z88.1 Allergy status to other antibiotic agents; Z89.511 Acquired absence of right leg below knee; Z99.2 Dependence on renal dialysis
CPT/HCPCS: 36005; 71010; 75820; 80048; 80053; 80202; 82140; 83036; 83605; 84100; 85025; 85027; 85610; 85730; 87040; 90935

== ENCOUNTER 2017-05-12 11:21 | Day surgery (SDC) | payer MEDICARE ==
[2017-04-28 14:25] VITALS: BMI 25.3
[2017-05-12] MEDS ORDERED: VANCOMYCIN 1,000 MG in SODIUM CHLORIDE 0.9% 250 ML IVPB STA (11:49)
[2017-05-12] MEDS ORDERED: VANCOMYCIN 1,000 MG in SODIUM CHLORIDE 0.9% IRRIGATIO 1,000 ML IRRIGATION STA (11:49)
[2017-05-12 12:12] LABS: Glucose,Whole Blood 142 mg/dL (75-99)
[2017-05-12] MEDS: SODIUM CHLORIDE 0.9% 1,000 ML IV SCH (12:15)
[2017-05-12 13:14] LABS: INR 2.5 (<1.2); Prothrombin Time 24.2 sec (9.0-12.0)
[2017-05-12] MEDS ORDERED: MIDAZOLAM 2 MG/2 ML VIAL ONE (14:32)
[2017-05-12] MEDS ORDERED: fentaNYL (PF) 50 MCG/ML 2 ML AMP ONE (14:32)
[2017-05-12] MEDS ORDERED: PROPOFOL 10 MG/ML 20 ML VIAL IV ONE (14:32)
[2017-05-12] MEDS ORDERED: VANCOMYCIN 1,000 MG VIAL ONE (14:32)
[2017-05-12] MEDS ORDERED: LIDOCAINE 1% INJ 10MG/ML (20 ML MDV) ONE ×2 (14:47)
[2017-05-12] MEDS ORDERED: LIDOCAINE 1% INJ 10MG/ML (20 ML MDV) SQ ONE ×2 (15:47→17:09)
[2017-05-12] MEDS ORDERED: LIDOCAINE 2% INJ 20 MG/ML SQ ONE (15:47)
[2017-05-12] MEDS ORDERED: ACETAMINOPHEN TAB 325 MG TAB PO PRN (17:33)
[2017-05-12] MEDS ORDERED: FEBUXOSTAT 40 MG PO PRN (17:35)
[2017-05-12] MEDS ORDERED: ATORVASTATIN 10 MG TAB PO SCH (21:00)
[2017-05-12] MEDS ORDERED: CALCIUM CARB-MAG CARB-FOLIC 1 EACH TAB PO SCH (21:00)
[2017-05-12] MEDS ORDERED: ASPIRIN 81 MG CHEW PO SCH (21:00)
[2017-05-12 21:11] LABS: Glucose,Whole Blood 152 mg/dL (75-99)
[2017-05-12] MEDS: LACTATED RINGERS 1,000 ML IV SCH (21:30)
[2017-05-12] MEDS: hydrALAZINE HCL 50 MG TAB PO SCH (21:40)
[2017-05-13 02:14] LABS: Glucose,Whole Blood 113 mg/dL (75-99)
[2017-05-13] MEDS: LACTATED RINGERS 1,000 ML IV SCH (04:07)
[2017-05-13] MEDS: SODIUM CHLORIDE 0.9% 1,000 ML IV SCH (06:30)
[2017-05-13] MEDS ORDERED: LEVOTHYROXINE 75 MCG TAB PO SCH (06:30)
[2017-05-13 07:13] LABS: Glucose,Whole Blood 132 mg/dL (75-99)
--- NOTE | 2017-05-13 07:23 | XR ---
EXAMINATION TYPE: XR chest 2V DATE OF EXAM: 05/13/2017 COMPARISON: Prior chest x-ray 02/18/2017 HISTORY: Lead placement check TECHNIQUE: Frontal and lateral views of the chest are obtained. FINDINGS: There is no focal air space opacity, pleural effusion, or pneumothorax seen. The cardiac silhouette size is stable and enlarged. Apical pleural thickening. Pacemaker has been placed in the r ight pectoral region, there is a lead within the right ventricle. The osseous structures are intact. IMPRESSION: No evident complication status post pacemaker placement.
[2017-05-13 07:42] LABS: Calcium 9.4 mg/dL (8.4-10.2); Potassium 5.1 mmol/L (3.5-5.1)
--- NOTE | 2017-05-13 07:47 | P.DS ---
Providers Attending physician: Cecil Blood Primary care physician: [facility] Course: Patient is doing well. She has no chest discomfort no breathing trouble she is lying comfortably in bed vitals are stable heart sounds are normal Chest x-ray was reviewed as no pneumothorax lead in stable position impression Persistent atrial fibrillation Underlying sick sinus syndrome and severe AV node disease Symptomatic bradycardia with heart rates in the 30s and 40s documented on the monitor Status post single chamber pacemaker implantation yesterday Stage V chronic kidney disease On dialysis History of renal transplant on immunosuppressive therapy Suggest 500 mg of vancomycin this morning. Discharge today once device was interrogated and is within normal limits follow-up in the office in 5 days Plan - Discharge Summary New Discharge Prescriptions: No Action Levothyroxine Sodium [Synthroid] 150 mcg PO DAILY hydrALAZINE HCL 50 mg PO BID Simvastatin [Zocor] 10 mg PO HS Cyclosporine, Modified [Gengraf] 25 mg PO HS Cyclosporine, Modified [Gengraf] 50 mg PO QAM Insuln Asp Prt/Insulin Aspart [NovoLOG MIX 70-30 VIAL] See Protocol SQ HS Febuxostat [Uloric] 40 mg PO DAILY PRN PRN Reason: gout predniSONE 5 mg PO DAILY Aspirin 81 mg PO HS Cholecalciferol [Vitamin D3] 2,000 unit PO HS Magnebinder 300 mg PO HS Warfarin [Coumadin] 7.5 mg PO TUTHSA Warfarin [Coumadin] 5 mg PO SUMOWEFR Discharge Medication List Aspirin 81 mg PO HS 04/20/14 [History] Cyclosporine, Modified [Gengraf] 25 mg PO HS 04/20/14 [History] Cyclosporine, Modified [Gengraf] 50 mg PO QAM 04/20/14 [History] Febuxostat [Uloric] 40 mg PO DAILY PRN 04/20/14 [History] Insuln Asp Prt/Insulin Aspart [NovoLOG MIX 70-30 VIAL] See Protocol SQ HS [History] Levothyroxine Sodium [Synthroid] 150 mcg PO DAILY 04/20/14 [History] Simvastatin [Zocor] 10 mg PO HS 04/20/14 [History] hydrALAZINE HCL 50 mg PO BID 04/20/14 [History] predniSONE 5 mg PO DAILY 04/20/14 [History] Cholecalciferol [Vitamin D3] 2,000 unit PO HS 02/13/17 [History] Magnebinder 300 mg PO HS 02/13/17 [History] Warfarin [Coumadin] 5 mg PO SUMOWEFR 04/28/17 [History] Warfarin [Coumadin] 7.5 mg PO TUTHSA 04/28/17 [History]
[2017-05-13] MEDS ORDERED: VANCOMYCIN 500 MG in SODIUM CHLORIDE 0.9% 250 ML IVPB STA (07:53)
[2017-05-13 08:52] VITALS: RESP 16
[2017-05-13] MEDS ORDERED: predniSONE 5 MG TAB PO SCH (09:00)
[2017-05-13 09:04] LABS: Hemoglobin A1C 5.7 % (4.2-6.1)
[2017-05-13] MEDS: hydrALAZINE HCL 50 MG TAB PO SCH (11:15)
[2017-05-13 12:06] LABS: Glucose,Whole Blood 157 mg/dL (75-99)
[2017-05-13 12:14] VITALS: BP 128/63; PULSE 59; TEMP 97.7
--- NOTE | 2017-05-13 13:14 | PCN ---
77 -year-old female with symptomatic severe bradycardia with dizzy spells. Heart rate 30s and 40s. This is demonstrated on the loop monitor recordings. The patient was brought to the EP lab in a fasting state. Written informed consent was obtained prior to the procedure. The right shoulder area was prepped and draped as per protocol. 1% Lidocaine was used for local anesthesia. I had ordered Daptomycin, however, the pharmacy cancelled this and sent Vancomycin instead. 1 gm of Vancomycin was administered and it was recommended by pharmacy to use one dose only over the next 24 hours given her renal function. An incision was made in the right pectoral groove, carried down to the level of the pectoralis muscle. A subfascial pocket was made. Hemostasis was assured. The left axillary vein was accessed and the lead was placed in the right ventricle. This was a [employer] 52 cm, model #2088, TC, serial # [id number]. This screwed in the ( ) apex. R waves were 9.3 millivolts. Pacing impedance 700 ohms. Pacing threshold 0.5 volts at 0.4 milliseconds. 10 volt test was negative. The leads were connected to the generator, [employer] model #[id number], serial number [id number]. The leads and the generator was placed in the subfascial pocket. The wound was closed in three layers and dressed per protocol. The device was then programmed to VVIR 50 to 100 beats a minute. MTDD
--- NOTE | 2017-05-13 13:17 | PCN ---
PROCEDURE PERFORMED: Explantation of Reveal monitor. The left pectoral area was prepped and draped as per protocol. 1% Lidocaine was used for local anesthesia. An incision was made over the previous surgical site and carried down to the level of the loop monitor . The loop monitor was explanted and the wound was closed in a single layer with silk sutures. RESULT: Successful explantation of the loop monitor. Please note that anesthesia was in attendance for the entire procedure. The procedure performed under MAC. [facility]
[2017-05-13] MEDS ORDERED: WARFARIN 5 MG TAB PO SCH (18:00)
[2017-05-14] MEDS ORDERED: WARFARIN 7.5 MG TAB PO SCH (18:00)
== END 2017-05-13 13:54 | disposition home or self-care (01) ==
LOC: CATHEP 11:21 → 3OBS 17:11 → CATHEP 05-13 13:54
PROVIDERS: ATTEND Internal Medicine Clinical Cardiac Electrophysiology
DX: I48.1 Persistent atrial fibrillation (principal); I49.5 Sick sinus syndrome; I44.1 Atrioventricular block, second degree; I13.2 Hypertensive heart and chronic kidney disease with heart failure and with stage 5 chronic kidney disease, or end stage renal disease; I50.9 Heart failure, unspecified; N18.6 End stage renal disease; E11.22 Type 2 diabetes mellitus with diabetic chronic kidney disease; Z99.2 Dependence on renal dialysis; E78.5 Hyperlipidemia, unspecified; E27.40 Unspecified adrenocortical insufficiency; E03.9 Hypothyroidism, unspecified; M19.90 Unspecified osteoarthritis, unspecified site; Z94.4 Liver transplant status; Z85.820 Personal history of malignant melanoma of skin; Z79.82 Long term (current) use of aspirin; Z79.4 Long term (current) use of insulin; Z79.899 Other long term (current) drug therapy; Z79.01 Long term (current) use of anticoagulants; Z79.52 Long term (current) use of systemic steroids; Z88.6 Allergy status to analgesic agent; Z88.1 Allergy status to other antibiotic agents; Z88.5 Allergy status to narcotic agent; Z88.8 Allergy status to other drugs, medicaments and biological substances; Z91.041 Radiographic dye allergy status; Z87.891 Personal history of nicotine dependence
CPT/HCPCS: 33208; 80048; 83036; 85610; 71020; C1892; C1898; C1769; J2250; J3370 ×2; J2001; J3010; J7515 ×2; J2704; J7512